=== PATIENT | male | born 1955 | race Caucasian/White ===

== ENCOUNTER 2020-06-19 08:48 | Outpatient (REF) | payer BC, SELFPAY ==
[2020-06-19 11:21] LABS: MANUAL DIFF FLAG NO
[2020-06-19 11:24] LABS: Basophils Percent Auto 0.6 % (0-2); Eosinophils Absolute Auto 0.1 X10*3/uL (0.0-0.4); Eosinophils Percent Auto 2.2 % (0-4); Hemoglobin 15.5 g/dl (14.0-18.0); Imm Gran Abs Auto 0.02 X10*3/uL (0.00-0.03); Imm Gran Pct Auto 0.3 % (0.0-0.4); Lymphocytes Absolute Auto 1.2 X10*3/uL (1.2-4.9); Lymphocytes Percent Auto 19.3 % (20-40); Mean Corpuscular Hemoglobin 30.3 pg (27.0-33.0); Mean Corpuscular Volume 91.8 fL (80-98); Monocytes Absolute Auto 0.6 X10*3/uL (0.1-1.2); Monocytes Percent Auto 9.4 % (2-11); Neutrophils Absolute Auto 4.3 X10*3/uL (2.0-8.3); Neutrophils Percent Auto 68.2 % (45-73); Platelet Count 250 X10*3/uL (160-400); Red Blood Count 5.12 X10*6/uL (4.60-5.80); Red Cell Distribution Width 13.3 % (11.0-16.0); White Blood Count 6.3 X10*3/uL (4.8-10.8)
[2020-06-19 12:04] LABS: Alanine Aminotransferase 28 U/L (0-40); Albumin Level 3.7 g/dL (3.5-5.0); Alkaline Phosphatase 43 U/L (39-117); Anion Gap 11 (12-20); Aspartate Amino Transferase 26 U/L (5-37); Bilirubin Total 0.5 mg/dL (0.0-1.0); Blood Urea Nitrogen 21 mg/dL (9-16); Calcium 8.5 mg/dL (8.4-10.2); Carbon Dioxide 28 mmol/L (22-29); Chloride 105 mmol/L (96-108); Cholesterol 149 mg/dL; Estimated Glomerular Filt Rate > 60; Glucose Fasting 102 mg/dL (60-99); HDL Cholesterol 46 mg/dL; LDL Cholesterol Calculated 89 mg/dl; Potassium 4.2 mmol/l (3.3-5.1); Sodium 140 mmol/L (135-145); Total Protein 5.5 g/dL (6.5-8.0); Triglycerides 74 mg/dL
[2020-06-19 12:08] LABS: Thyroid Stimulating Hormone 2.78 uIU/mL (0.32-4.0); Vitamin D 25-OH Total 55.4 ng/mL (>30)
[2020-06-19 14:16] LABS: Glucose Urine UA NEG (NEG); Leukocyte Esterase Urine NEG (NEG); Nitrite Urine NEG (NEG); Specific Gravity - Urine 1.025 (1.005-1.025); Urine Blood NEG (NEG); Urine Ketones NEG (NEG); Urine Protein TRACE MG/DL (NEG-TRACE)
[2020-06-19 14:20] LABS: PSA,Total (Free>4and<10) 8.05 ng/mL (0.00-4.00)
[2020-06-19 14:26] LABS: Appearance Urine CLEAR; Color Urine YELLOW
[2020-06-19 14:32] LABS: RBC Urine 0 /HPF (0); WBC Urine 0-2 /HPF (0-4)
[2020-06-20 12:26] LABS: Free Prostate Spec Ag 1.3 ng/mL; Percent Free Prostate Spec Ag 22 % (calc) (>25); Prostate Specific Ag Total 5.9 ng/mL (< OR = 4.0)
== END 2020-06-19 08:49 | disposition home or self-care (01) ==
LOC: HO.HMGCLDS 08:48
PROVIDERS: PCP Internal Medicine; Visit Provider Internal Medicine
DX: Z00.00 Encounter for general adult medical examination without abnormal findings (principal); E78.00 Pure hypercholesterolemia, unspecified; R97.20 Elevated prostate specific antigen [PSA]; E66.09 Other obesity due to excess calories; Z12.5 Encounter for screening for malignant neoplasm of prostate
CPT/HCPCS: 36415; 80053; 80061; 81001; 82306; 84153; 84154; 84443; 85025

== ENCOUNTER → 2020-08-12 11:16 | Outpatient (BNVA) | payer BC, SELFPAY | PROVIDERS: PCP Internal Medicine; Visit Provider Urology ==

== ENCOUNTER → 2020-11-26 11:31 | Outpatient (BNVA) | payer BC, SELFPAY | PROVIDERS: PCP Internal Medicine; Visit Provider Internal Medicine Cardiovascular Disease | DX: E78.5 Hyperlipidemia, unspecified (principal) | CPT/HCPCS: 93005 ==

== ENCOUNTER 2020-12-06 10:15 | Outpatient (REF) | payer BC, SELFPAY ==
[2020-12-06 12:01] LABS: PSA,Total (Free>4and<10) 2.86 ng/mL (0.00-4.00)
== END 2020-12-06 10:16 | disposition home or self-care (01) ==
LOC: HO.LAB 10:15
PROVIDERS: PCP Internal Medicine; Visit Provider Urology
DX: Z12.5 Encounter for screening for malignant neoplasm of prostate (principal); N13.8 Other obstructive and reflux uropathy; N40.1 Benign prostatic hyperplasia with lower urinary tract symptoms; R39.12 Poor urinary stream
CPT/HCPCS: 36415; 84153

== ENCOUNTER → 2021-01-20 11:18 | Outpatient (BNVA) | payer BC, SELFPAY | PROVIDERS: PCP Internal Medicine; Visit Provider Urology ==

== ENCOUNTER 2021-07-02 09:11 | Outpatient (REF) | payer BC, SELFPAY ==
[2021-07-02 11:18] LABS: MANUAL DIFF FLAG NO
[2021-07-02 11:37] LABS: Basophils Percent Auto 0.4 % (0-2); Eosinophils Absolute Auto 0.2 X10*3/uL (0.0-0.4); Eosinophils Percent Auto 2.8 % (0-4); Hematocrit 44.9 % (42.0-52.0); Hemoglobin 14.9 g/dl (14.0-18.0); Imm Gran Abs Auto 0.01 X10*3/uL (0.00-0.03); Imm Gran Pct Auto 0.2 % (0.0-0.4); Lymphocytes Absolute Auto 1.1 X10*3/uL (1.2-4.9); Mean Corpuscular HGB Conc 33.2 g/dl (31.0-36.0); Mean Corpuscular Hemoglobin 30.2 pg (27.0-33.0); Mean Corpuscular Volume 90.9 fL (80.0-98.0); Mean Platelet Volume 10.1 fL (9.4-12.4); Monocytes Absolute Auto 0.6 X10*3/uL (0.1-1.2); Monocytes Percent Auto 10.7 % (2-11); Neutrophils Absolute Auto 3.5 x10*3/uL (2.0-8.3); Neutrophils Percent Auto 64.9 % (45-73); Platelet Count 230 X10*3/uL (160-400); Red Blood Count 4.94 X10*6/uL (4.60-5.80); Red Cell Distribution Width 13.6 % (11.0-16.0); White Blood Count 5.4 X10*3/uL (4.8-10.8)
[2021-07-02 12:02] LABS: Alanine Aminotransferase 24 U/L (0-40); Albumin Level 3.5 g/dL (3.5-5.0); Alkaline Phosphatase 46 U/L (39-117); Anion Gap 9 (12-20); Aspartate Amino Transferase 26 U/L (5-37); Bilirubin Total 0.6 mg/dL (0.0-1.0); Blood Urea Nitrogen 26 mg/dL (9-16); Calcium 8.5 mg/dL (8.4-10.2); Carbon Dioxide 27 mmol/L (22-29); Chloride 109 mmol/L (96-108); Cholesterol 139 mg/dL; Estimated Glomerular Filt Rate > 60; Glucose Fasting 106 mg/dL (60-99); HDL Cholesterol 45 mg/dL; LDL Cholesterol Calculated 81 mg/dl; Potassium 4.3 mmol/L (3.3-5.1); Sodium 141 mmol/L (135-145); Total Protein 5.4 g/dL (6.5-8.0); Triglycerides 66 mg/dL
[2021-07-02 12:19] LABS: Thyroid Stimulating Hormone 2.62 uIU/mL (0.32-4.0); Vitamin D 25-OH Total 51.7 ng/mL (>30)
== END 2021-07-02 09:12 | disposition home or self-care (01) ==
LOC: HO.HMGCLDS 09:11
PROVIDERS: PCP Internal Medicine; Visit Provider Internal Medicine
DX: Z00.00 Encounter for general adult medical examination without abnormal findings (principal); E78.00 Pure hypercholesterolemia, unspecified; E66.09 Other obesity due to excess calories
CPT/HCPCS: 36415; 80053; 80061; 82306; 84443; 85025

== ENCOUNTER 2021-07-13 13:16 | Outpatient (REF) | payer BC, SELFPAY ==
[2021-07-13 17:32] LABS: PSA,Total (Free>4and<10) 4.39 ng/mL (0.00-4.00)
[2021-07-14 18:12] LABS: Free Prostate Spec Ag 0.7 ng/mL; Percent Free Prostate Spec Ag 21 % (calc) (>25); Prostate Specific Ag Total 3.3 ng/mL (< OR = 4.0)
== END 2021-07-13 13:17 | disposition home or self-care (01) ==
LOC: HO.HMGCLDS 13:16
PROVIDERS: Visit Provider Urology
DX: Z12.5 Encounter for screening for malignant neoplasm of prostate (principal); N40.1 Benign prostatic hyperplasia with lower urinary tract symptoms; N13.8 Other obstructive and reflux uropathy; R39.12 Poor urinary stream
CPT/HCPCS: 36415; 84153; 84154

== ENCOUNTER → 2021-07-23 14:39 | Outpatient (BNVA) | payer BC, SELFPAY | PROVIDERS: PCP Internal Medicine; Visit Provider Urology ==

== ENCOUNTER 2021-11-21 07:57 | Outpatient (REF) | payer MEDICARE, SELFPAY ==
[2021-11-21 09:19] LABS: PSA,Total (Free>4and<10) 3.79 ng/mL (0.00-4.00)
== END 2021-11-21 07:58 | disposition home or self-care (01) ==
LOC: HO.LAB 07:57
PROVIDERS: PCP Internal Medicine; Visit Provider Urology
DX: R97.20 Elevated prostate specific antigen [PSA] (principal); Z12.5 Encounter for screening for malignant neoplasm of prostate
CPT/HCPCS: 36415; 84153

== ENCOUNTER → 2021-12-03 11:33 | Outpatient (BNVA) | payer MEDICARE, SELFPAY | PROVIDERS: Visit Provider Urology | DX: R97.20 Elevated prostate specific antigen [PSA] (principal) | CPT/HCPCS: 51798; 99212 ==

== ENCOUNTER → 2021-12-24 13:26 | Outpatient (BNVA) | payer BC, SELFPAY | PROVIDERS: PCP Internal Medicine; Referring Provider Internal Medicine; Visit Provider Internal Medicine Cardiovascular Disease | DX: M25.471 Effusion, right ankle (principal); M25.472 Effusion, left ankle; E78.5 Hyperlipidemia, unspecified | CPT/HCPCS: 93005 ==

== ENCOUNTER 2022-05-26 08:32 | Outpatient (REF) | payer MEDICARE, SELFPAY ==
[2022-05-26 15:46] LABS: PSA,Total (Free>4and<10) 4.68 ng/mL (0.00-4.00)
[2022-05-28 10:19] LABS: Free Prostate Spec Ag 0.9 ng/mL; Percent Free Prostate Spec Ag 19 % (calc) (>25); Prostate Specific Ag Total 4.7 ng/mL (< OR = 4.0)
== END 2022-05-26 08:33 | disposition home or self-care (01) ==
LOC: HO.HMGCLDS 08:32
PROVIDERS: PCP Internal Medicine; Visit Provider Urology
DX: Z12.5 Encounter for screening for malignant neoplasm of prostate (principal); N40.1 Benign prostatic hyperplasia with lower urinary tract symptoms; N13.8 Other obstructive and reflux uropathy; R97.20 Elevated prostate specific antigen [PSA]
CPT/HCPCS: 36415; 84153; 84154

== ENCOUNTER 2022-06-02 11:51 | Day surgery (SDC) | payer MEDICARE, SELFPAY ==
--- NOTE | 2022-06-01 13:30 | HO.ANESPROP2 ---
Documented by User: Donna Story NP 06/01/22 13:30 HPI - Anesthesia Eval Consult details Narrative: 66yo M for Colonoscopy PMFSH Active Problems Active Problems: All Active Problems (Updated 12/24/21 @ 13:54 by Nam Mullins MD) Ankle edema, bilateral (Acute) Hyperlipidemia (Acute) BPH w urinary obs/LUTS (Acute) Weak urinary stream (Acute) Elevated PSA (Acute) Past Medical History Medical History Hyperlipidemia Family History Family History Father CAD (coronary artery disease) Brother CAD (coronary artery disease) Paternal Grandfather Prostate cancer Mother CAD (coronary artery disease) Surgical History Surgical History H/O partial thyroidectomy History of hernia surgery S/P LASIK surgery of both eyes Social History Social History Alcohol intake: current Alcohol intake frequency: holidays/special occasions only Alcohol type: wine Patient Tobacco Use Status: Never used Tobacco Are you DNR?: No Advance Directives: No Advance Directives Information Provided: Yes Nutrition Risks: No Nutritional Risk Meds Allergies Allergy/AdvReac Type Severity Reaction Status Date / Time No Known Allergies Allergy Verified 12/24/21 13:29 Home Medications Medication Instructions Recorded Confirmed Last Taken Type turmeric root extract 500 mg 500 mg PO DAILY 08/12/20 12/24/21 Unknown History capsule coenzyme Q10 300 mg capsule (Co 300 mg PO DAILY 11/26/20 12/24/21 Unknown History Q-10) magnesium 250 mg tablet 250 mg PO DAILY 11/26/20 12/24/21 Unknown History multivitamin 1 tab PO DAILY 11/26/20 12/24/21 Unknown History metronidazole 1 % topical gel 1 appl topical DAILY 01/20/21 12/24/21 Unknown History ascorbic acid (vitamin C) 500 mg 1,000 mg PO 12/24/21 12/24/21 Unknown History capsule fexofenadine 180 mg tablet mg 06/01/22 06/01/22 Unknown History Exam Exam Date and Time: June 01, 2022 1330 Assessment and Plan Assessment Anesthesia Assessment: Chart Reviewed Documented by User: Jodi Felton MD 06/02/22 12:41 PMFSH Past Medical History Medical History Hyperlipidemia Family History Family History Father CAD (coronary artery disease) Brother CAD (coronary artery disease) Paternal Grandfather Prostate cancer Mother CAD (coronary artery disease) Family history of problems with anesthesia: No Surgical History Surgical History H/O partial thyroidectomy History of hernia surgery S/P LASIK surgery of both eyes History of Problems with Anesthesia: No Social History Social History Alcohol intake: current Alcohol intake frequency: holidays/special occasions only Alcohol type: wine Patient Tobacco Use Status: Never used Tobacco Are you DNR?: No Advance Directives: No Advance Directives Information Provided: Yes Nutrition Risks: No Nutritional Risk Meds Allergies Allergy/AdvReac Type Severity Reaction Status Date / Time No Known Allergies Allergy Verified 12/24/21 13:29 Home Medications Medication Instructions Recorded Confirmed Last Taken Type turmeric root extract 500 mg 500 mg PO DAILY 08/12/20 12/24/21 Unknown History capsule coenzyme Q10 300 mg capsule (Co 300 mg PO DAILY 11/26/20 12/24/21 Unknown History Q-10) magnesium 250 mg tablet 250 mg PO DAILY 11/26/20 12/24/21 Unknown History multivitamin 1 tab PO DAILY 11/26/20 12/24/21 Unknown History metronidazole 1 % topical gel 1 appl topical DAILY 01/20/21 12/24/21 Unknown History ascorbic acid (vitamin C) 500 mg 1,000 mg PO 12/24/21 12/24/21 Unknown History capsule fexofenadine 180 mg tablet mg 06/01/22 06/01/22 Unknown History Exam Height,Weight and Vital Signs: Height 5 ft 11 in Weight 107.955 kg Vital Signs Temp Pulse Resp BP Pulse Ox O2 Del Method 06/02/22 12:03 96.8 F 58 18 151/96 H 98 Room Air Airway Mallampati Class: II TM Dist: >3cm Neck ROM: Full Loose/Missing/Broken Teeth: No (Denies broken, loose, missing teeth) Heart: RRR Lungs: CTAB Assessment and Plan Assessment Anesthesia Assessment: Anesthesia Plan Discussed Final Anesthetic Review Family History of Problems with Anesthesia: No History of Problems with Anesthesia: No ASA Class: II Final Preanesthetic Review: No Changes in Pt Med Stat, Meds/Allgs Chart Reviewed, Consent Obtained/Reviewed and Anes Risks/Benef Reviewed Patient Risk: Low Procedure Risk: Low Assessment/Block/Sedation in SS: Assess/Block/Sedation-SS Anesthetic Plan Anesthetic Plan: MAC: Disposition: Standard PACU
[2022-06-02 09:51] VITALS: BMI 33.2
[2022-06-02 12:03] VITALS: BP 151/96; PULSE 58; RESP 18; TEMP 36; O2SAT 98
[2022-06-02] MEDS: Lactated Ringers 1,000 ML 100 ML IVCONT (12:25)
--- NOTE | 2022-06-02 12:53 | MHC.SHP ---
Pre-Procedural Eval Section A Date of Service: 06/02/22 The patient is an INPATIENT: No Changes since office visit: No Cold of Flu in the past 2 weeks, No New Medical Problems, No Changes in Medication and No Patient answered all questions The History & Physical has been completed within 30 days and I have reviewed it.: Yes Section B Chief Complaint: screening Allergies: Allergies Allergy/AdvReac Type Severity Reaction Status Date / Time No Known Allergies Allergy Verified 12/24/21 13:29 Plan I have reviewed the history and physical and performed a pertinent physical examination on my patient. No changes have occurred unless specified. Time Spent With Patient Time: Total time managing care of this patient today ____ minutes.
--- NOTE | 2022-06-02 13:26 | PM.OP ---
Brief Operative Note Date of Service: 06/02/22 Pre-op diagnosis: screening Post-op diagnosis: same Procedure: colonoscopy Surgeon: Marcos Kirkland Anesthesia: MAC Was an Helpdesk Manager used for this Procedure?: No Estimated blood loss (mL): 2 Pathology: other Condition: stable Disposition: PACU
[2022-06-02 13:30] VITALS: BP 105/69; PULSE 76; RESP 16; TEMP 36.4; O2SAT 95
[2022-06-02 13:45] VITALS: BP 120/70; PULSE 66; RESP 15; TEMP 36.4; O2SAT 95
--- NOTE | 2022-06-02 23:16 | OP_ITS ---
SURGEON: Marcos Kirkland MD INDICATIONS: Colon cancer screening and prior history of tubular adenomas. PREOPERATIVE DIAGNOSIS: POSTOPERATIVE DIAGNOSIS: PROCEDURE PERFORMED: Colonoscopy to the terminal ileum with snare polypectomy and biopsy. ESTIMATED BLOOD LOSS: COMPLICATIONS: ANESTHESIA: ASSISTANTS: SPECIMENS: MEDICATIONS: Monitored anesthesia care. DESCRIPTION OF PROCEDURE: The procedure was performed on 06/02/2022. The history and physical were performed, the risks and benefits of the procedure were explained to the patient. Informed consent was obtained. The patient was placed in the left lateral decubitus position. A digital rectal exam was performed and was found to be normal. The Olympus pediatric video colonoscope was introduced into the rectum and advanced to the cecum without difficulty. The cecum was identified by transillumination, palpation, and identification of ileocecal valve, examination was performed. The scope was removed. He tolerated the procedure well, returned to recovery in stable condition. FINDINGS: The terminal ileum was normal. The visualized colonic mucosa was normal. There was some liquid stool coating the mucosa limiting the sensitivity examination for detection of small polyps, this was washed and suctioned. In the cecum was a 6 mm polyp, which was removed with a snare. A biopsy was obtained of the base of the polyp, at 45 cm was an 8 mm polyp, which was removed with a snare and recovered via suction. No other polyps were identified. Retroflexed examination showed moderate-sized internal hemorrhoids. There was moderate sigmoid diverticulosis. IMPRESSION: Colon polyps. RECOMMENDATIONS: Follow up the biopsy results. MD MARIA ANTONIA Man/BRE / [id number]
== END 2022-06-02 15:15 | disposition home or self-care (01) ==
PROVIDERS: PCP Internal Medicine; Visit Provider Internal Medicine Gastroenterology
PROC: 0DJD8ZZ Inspection of Lower Intestinal Tract, Via Natural or Artificial Opening Endoscopic (ICD-10-PCS; CPT 45378; principal; 2022-06-02 13:00)
DX: Z12.11 Encounter for screening for malignant neoplasm of colon (principal); Z86.010 Personal history of colon polyps; D12.0 Benign neoplasm of cecum; D12.5 Benign neoplasm of sigmoid colon; K57.30 Diverticulosis of large intestine without perforation or abscess without bleeding; K64.8 Other hemorrhoids; N40.0 Benign prostatic hyperplasia without lower urinary tract symptoms; E78.00 Pure hypercholesterolemia, unspecified; E04.1 Nontoxic single thyroid nodule; J30.89 Other allergic rhinitis; Z79.899 Other long term (current) drug therapy
CPT/HCPCS: 45385; 45380; 88305

== ENCOUNTER → 2022-06-04 08:52 | Outpatient (BNVA) | payer MEDICARE, SELFPAY | PROVIDERS: PCP Internal Medicine; Visit Provider Urology | DX: N40.1 Benign prostatic hyperplasia with lower urinary tract symptoms (principal); N13.8 Other obstructive and reflux uropathy; R97.20 Elevated prostate specific antigen [PSA]; R39.12 Poor urinary stream; E78.5 Hyperlipidemia, unspecified; Z79.899 Other long term (current) drug therapy | CPT/HCPCS: Q3014 ==

== ENCOUNTER 2022-09-14 08:16 | Outpatient (REF) | payer MEDICARE, SELFPAY ==
[2022-09-14 12:35] LABS: PSA,Total (Free>4and<10) 4.72 ng/mL (0.00-4.00)
[2022-09-16 10:18] LABS: Free Prostate Spec Ag 0.8 ng/mL; Percent Free Prostate Spec Ag 18 % (calc) (>25); Prostate Specific Ag Total 4.4 ng/mL (< OR = 4.0)
== END 2022-09-14 08:17 | disposition home or self-care (01) ==
LOC: HO.HMGCLDS 08:16
PROVIDERS: PCP Internal Medicine; Visit Provider Urology
DX: Z12.5 Encounter for screening for malignant neoplasm of prostate (principal); N40.1 Benign prostatic hyperplasia with lower urinary tract symptoms; N13.8 Other obstructive and reflux uropathy
CPT/HCPCS: 36415; 84153; 84154

== ENCOUNTER → 2022-09-30 08:29 | Outpatient (BNVA) | payer MEDICARE, SELFPAY | PROVIDERS: PCP Internal Medicine; Visit Provider Urology | DX: N40.1 Benign prostatic hyperplasia with lower urinary tract symptoms (principal); N13.8 Other obstructive and reflux uropathy; R97.20 Elevated prostate specific antigen [PSA] | CPT/HCPCS: 51798; 99212 ==

== ENCOUNTER 2023-01-03 06:40 | Outpatient (REF) | payer MEDICARE, SELFPAY ==
[2023-01-03 11:32] LABS: MANUAL DIFF FLAG NO
[2023-01-03 11:43] LABS: Basophils Percent Auto 0.5 % (0-2); Eosinophils Absolute Auto 0.2 X10*3/uL (0.0-0.4); Eosinophils Percent Auto 2.8 % (0-4); Hematocrit 44.3 % (42.0-52.0); Hemoglobin 14.7 g/dl (14.0-18.0); Imm Gran Abs Auto 0.02 X10*3/uL (0.00-0.03); Imm Gran Pct Auto 0.4 % (0.0-0.4); Lymphocytes Absolute Auto 1.1 X10*3/uL (1.2-4.9); Lymphocytes Percent Auto 19.2 % (20-40); Mean Corpuscular HGB Conc 33.2 g/dl (31.0-36.0); Mean Corpuscular Hemoglobin 29.8 pg (27.0-33.0); Mean Corpuscular Volume 89.9 fL (80.0-98.0); Mean Platelet Volume 10.1 fL (9.4-12.4); Monocytes Absolute Auto 0.5 X10*3/uL (0.1-1.2); Monocytes Percent Auto 8.7 % (2-11); Neutrophils Absolute Auto 3.9 x10*3/uL (2.0-8.3); Neutrophils Percent Auto 68.4 % (45-73); Platelet Count 211 X10*3/uL (160-400); Red Blood Count 4.93 X10*6/uL (4.60-5.80); Red Cell Distribution Width 13.9 % (11.0-16.0); White Blood Count 5.6 X10*3/uL (4.8-10.8)
[2023-01-03 12:03] LABS: Alanine Aminotransferase 21 U/L (0-40); Albumin Level 3.4 g/dL (3.5-5.0); Alkaline Phosphatase 45 U/L (39-117); Anion Gap 9 (12-20); Aspartate Amino Transferase 25 U/L (5-37); Bilirubin Total 0.5 mg/dL (0.0-1.0); Blood Urea Nitrogen 25 mg/dL (9-16); Calcium 8.4 mg/dL (8.4-10.2); Carbon Dioxide 26 mmol/L (22-29); Chloride 110 mmol/L (96-108); Cholesterol 130 mg/dL; Estimated Glomerular Filt Rate > 60; Glucose Fasting 100 mg/dL (60-99); HDL Cholesterol 44 mg/dL; LDL Cholesterol Calculated 75 mg/dl; Potassium 3.9 mmol/L (3.3-5.1); Sodium 141 mmol/L (135-145); Total Protein 5.4 g/dL (6.5-8.0); Triglycerides 56 mg/dL
[2023-01-03 12:11] LABS: Thyroid Stimulating Hormone 3.56 uIU/mL (0.32-4.0)
== END 2023-01-03 06:41 | disposition home or self-care (01) ==
LOC: HO.HMGCLDS 06:40
PROVIDERS: PCP Internal Medicine; Visit Provider Internal Medicine
DX: Z00.00 Encounter for general adult medical examination without abnormal findings (principal); E78.00 Pure hypercholesterolemia, unspecified; R97.20 Elevated prostate specific antigen [PSA]; E66.09 Other obesity due to excess calories
CPT/HCPCS: 36415; 80053; 80061; 84443; 85025

== ENCOUNTER 2023-01-06 08:43 | Outpatient (AMB) | payer BC, SELFPAY ==
--- NOTE | 2023-01-06 08:46 | A.OFFVIS_ITS ---
Intake Vital Signs 01/06/23 08:47 Height 5 ft 11 in Weight 235 lb 7.259 oz BMI 32.8 BP 108/78 Blood Pressure Location Lt brachial Position Sitting Pulse 54 Pulse Source Monitor Intake Visit Reasons: 1 year follow up Intake Note: 1 year follow up with EKG. 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 He has family history of coronary artery disease and brother and father both had coronary disease and CABG in their 40s. He has been doing well. Physically active and exercises 3 times a week with a senior technical trainer. No chest pain or shortness of breath. Last LDL level is 81, triglycerides 66 and HDL 45. Doing well as before and physically active. 01/06/23: He is here for follow-up. He is taking atorvastatin 20 mg daily. Last LDL cholesterol was 75 on 01/03/2023. HDL 44, total cholesterol 130, triglycerides 56. TSH 3.56. He continues to be active and has no exertional symptoms. No chest discomfort shortness of breath. Taking medications regularly without any issues. [facility] Medical History Hyperlipidemia Surgical History H/O partial thyroidectomy History of hernia surgery S/P LASIK surgery of both eyes Family History Father CAD (coronary artery disease) Brother CAD (coronary artery disease) Paternal Grandfather Prostate cancer Mother CAD (coronary artery disease) Social History Alcohol intake: current Alcohol intake frequency: holidays/special occasions only Alcohol type: wine Patient Tobacco Use Status: Never used Tobacco Review of Systems Const Denies weakness ENT Denies dizziness Card Denies chest pain, Denies chest pain with activity, Denies syncope, Denies rapid heart rate, Denies pedal edema, Denies edema, Denies leg edema, Denies lightheadedness, Denies palpitations, Denies dyspnea, Denies dyspnea on exertion and Denies orthopnea Resp Denies cough, Denies dyspnea and Denies dyspnea on exertion GI Denies hematochezia and Denies change in stool character Musc Denies abnormal gait, Denies muscle cramps, Denies muscle weakness, Denies numbness, Denies radiating pain into limb and Denies tingling Neuro Denies abnormal gait, Denies dizziness, Denies syncope, Denies numbness, Denies tingling and Denies weakness Endo Denies palpitations Physical Exam Vital Signs: Last Vital Signs Pulse 54 01/06/23 08:47 BP 108/78 01/06/23 08:47 BMI result Body Mass Index 32.8 GENERAL APPEARANCE: in no acute distress, pleasant. NECK: no carotid bruit, no jugular venous distention. SKIN: no suspicious lesions, warm and dry. HEART: no murmurs, regular rate and rhythm. LUNGS: clear to auscultation bilaterally. ABDOMEN: soft, nontender. EXTREMITIES: 1+ edema at ankles. PERIPHERAL PULSES: equal. NEUROLOGIC: No gross deficits, AAO X 3 Office Procedures EKG Details: Sinus bradycardia 54 beats per minute, otherwise normal EKG, QTC 402 milliseconds. [id number], Complete Assessment & Plan Assessment & Plan (1) Hyperlipidemia: Code(s): E78.5 - Hyperlipidemia, unspecified Plan Pleasant 67 year gentleman here for follow-up. He has background history of hyperlipidemia. His cholesterol numbers are great right now with atorvastatin 20 mg once a day. He continues to be active and exercise regularly and is playing squash 57. Overall as before, he has been stable. Follow-up with us in 1 year. He should have once a year fasting lipid panel. Thank you for allowing me to participate in the care of your patient. Please feel free to contact me if you have any questions. Coding Level of Care Code Est Pt Level 3 (71118) Diagnoses Hyperlipidemia E78.5 CPT Codes EKG - CPT: [id number]-[id number], Complete ([id number])
[2023-01-06 08:47] VITALS: BP 108/78; PULSE 54; BMI 32.8
== END 2023-01-06 08:59 | disposition home or self-care (01) ==
PROVIDERS: Visit Provider Internal Medicine Cardiovascular Disease
DX: E78.5 Hyperlipidemia, unspecified (principal)
CPT/HCPCS: 93010; 99213

== ENCOUNTER → 2023-01-06 08:43 | Outpatient (BNVA) | payer BC, SELFPAY | PROVIDERS: Visit Provider Internal Medicine Cardiovascular Disease | DX: E78.5 Hyperlipidemia, unspecified (principal) | CPT/HCPCS: 93005 ==

== ENCOUNTER 2023-03-22 07:38 | Outpatient (REF) | payer BC, SELFPAY ==
[2023-03-24 10:29] LABS: Free Prostate Spec Ag 0.8 ng/mL; Percent Free Prostate Spec Ag 17 % (calc) (>25); Prostate Specific Ag Total 4.7 ng/mL (< OR = 4.0)
== END 2023-03-22 07:39 | disposition home or self-care (01) ==
LOC: HO.HMGCLDS 07:38
PROVIDERS: PCP Internal Medicine; Visit Provider Urology
DX: R97.20 Elevated prostate specific antigen [PSA] (principal); Z12.5 Encounter for screening for malignant neoplasm of prostate
CPT/HCPCS: 36415; 84153; 84154

== ENCOUNTER 2023-03-31 08:19 | Outpatient (AMB) | payer BC, SELFPAY ==
--- NOTE | 2023-03-31 11:26 | MHC.OFFVIS ---
Intake Intake Visit Reasons: 6m/PSA(set) Intake Note: Patient is Present for Telephone Follow Up PSA Urology Med: Finasteride, Antibiotic Allergy: None Blood Thinner: None Pharamcy:[facility] Allergies No Known Allergies Allergy (Verified 01/06/23 08:48) HPI HPI Comments History of Present Illness Details Morgan is a pleasant male. He is a patient of Dr. Brown. 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 [employer] Lower urinary tract symptoms and elevated PSA Significant drop in PSA on finasteride Decrease in nocturia to 1 times Stream stable Current therapy finasteride Family history of BPH PSA since June 2019 has been variable between 4 and 8 - 07/03 8.1 22%, 12/01 2.9, 07/04 4.4 21%, 12/02 3.8, 06/03 4.7, 10/03 4.4 18%, 04/04 4.7 17% Six month follow-up [facility] Medical History Hyperlipidemia Surgical History S/P LASIK surgery of both eyes H/O partial thyroidectomy History of hernia surgery Family History Father CAD (coronary artery disease) Brother CAD (coronary artery disease) Paternal Grandfather Prostate cancer Mother CAD (coronary artery disease) Social History Alcohol intake: current Alcohol intake frequency: holidays/special occasions only Alcohol type: wine Patient Tobacco Use Status: Never used Tobacco Review of Systems Const All systems reviewed & are unremarkable except as noted in HPI and below Reports no additional complaints Resp Reports no additional complaints GI Reports no additional complaints Reports as per HPI Musc Reports no additional complaints Physical Exam Telemedicine evaluation Appropriate responses Regular breathing rate and rhythm HEENT Head: Yes normal to inspection Ears: hearing grossly normal bilaterally Eyes General: appearance normal, both eyes and all related structures Neck Neck: Yes normal visual inspection Chest Chest palpation & inspection: normal inspection of the chest Resp Effort & Inspection: normal respiratory effort and able to speak in complete sentences Assessment & Plan Assessment & Plan (1) Elevated PSA: Code(s): R97.20 - Elevated prostate specific antigen [PSA] Plan Six month follow-up PSA Orders: Orders PSA,Total (Free>4and<10) 6 Months R97.20 - Elevated prostate specific antigen [PSA] Medications: Refilled finasteride 5 mg PO DAILY 90 days 90 tabs 1RF N40.1 - Benign prostatic hyperplasia with lower urinary tract symptoms, R33.9 - Retention of urine, unspecified, R39.12 - Poor urinary stream Patient Instructions: Imaging studies, laboratory and physical exam results were discussed and reviewed in detail. No major barriers to patient understanding were identified. An opportunity to ask questions regarding the treatment plan was provided. All questions were answered. The patient expressed understanding and agreement with the above treatment plan. The patient is aware they should contact our office by phone for worsening of their current condition or the appearance of new urologic symptoms. Compliance is encouraged with any medications and followup testing that is ordered. It is a privilege to participate in the urologic care of your patient. If you have any questions or concerns regarding treatment for the above conditions, or other urologic issues, please do not hesitate to contact me. The office telephone contact is [phone]. This note is constructed using voice recognition software. While every effort has been made to ensure accuracy chief privacy officer errors may have been included. Yours sincerely, Dr Eamon Romero MD, [facility] - Urology Providers of Expert, Compassionate Care for the Genitourinary System Telehealth Telehealth Location of provider rendering services: practice address Location of patient: address on file Patient Identification confirmed using: Name, : Yes Telehealth method: video Patient verbally consented to treatment: Yes Patient verbally consented to billing insurance company: Yes Patient informed of any privacy concerns related to visit: Yes Coding Level of Care Code Tele Est Pt Level 3 (78424) Diagnoses Elevated PSA R97.20
== END 2023-03-31 11:58 | disposition home or self-care (01) ==
LOC: HO.HUSH 08:19
PROVIDERS: PCP Internal Medicine; Visit Provider Urology
DX: R97.20 Elevated prostate specific antigen [PSA] (principal)
CPT/HCPCS: 99213

== ENCOUNTER → 2023-03-31 08:19 | Outpatient (BNVA) | payer BC, SELFPAY | PROVIDERS: PCP Internal Medicine; Visit Provider Urology ==

== ENCOUNTER 2023-09-19 09:36 | Outpatient (REF) | payer BC, SELFPAY ==
[2023-09-19 13:55] LABS: MANUAL DIFF FLAG NO
[2023-09-19 14:02] LABS: Basophils Percent Auto 0.5 % (0-2); Eosinophils Absolute Auto 0.1 X10*3/uL (0.0-0.4); Eosinophils Percent Auto 2.1 % (0-4); Hematocrit 44.2 % (42.0-52.0); Hemoglobin 14.9 g/dl (14.0-18.0); Imm Gran Abs Auto 0.02 X10*3/uL (0.00-0.03); Imm Gran Pct Auto 0.3 % (0.0-0.4); Lymphocytes Absolute Auto 1.1 X10*3/uL (1.2-4.9); Lymphocytes Percent Auto 19.6 % (20-40); Mean Corpuscular HGB Conc 33.7 g/dl (31.0-36.0); Mean Corpuscular Hemoglobin 30.1 pg (27.0-33.0); Mean Corpuscular Volume 89.3 fL (80.0-98.0); Mean Platelet Volume 10.3 fL (9.4-12.4); Monocytes Absolute Auto 0.6 X10*3/uL (0.1-1.2); Monocytes Percent Auto 9.8 % (2-11); Neutrophils Percent Auto 67.7 % (45-73); Platelet Count 209 X10*3/uL (160-400); Red Blood Count 4.95 X10*6/uL (4.60-5.80); White Blood Count 5.8 X10*3/uL (4.8-10.8)
[2023-09-19 14:50] LABS: PSA,Total (Free>4and<10) 3.98 ng/mL (0.00-4.00)
[2023-09-19 15:06] LABS: Alanine Aminotransferase 22 U/L (0-40); Albumin Level 3.4 g/dL (3.5-5.0); Alkaline Phosphatase 44 U/L (39-117); Anion Gap 7 (12-20); Aspartate Amino Transferase 22 U/L (5-37); Bilirubin Total 0.5 mg/dL (0.0-1.0); Blood Urea Nitrogen 22 mg/dL (9-16); Calcium 8.4 mg/dL (8.4-10.2); Carbon Dioxide 27 mmol/L (22-29); Chloride 111 mmol/L (96-108); Cholesterol 132 mg/dL (<200); Estimated Glomerular Filt Rate > 60; Glucose Fasting 104 mg/dL (60-99); HDL Cholesterol 46 mg/dL (>40); LDL Cholesterol Calculated 74 mg/dL (<100); Potassium 4.3 mmol/L (3.3-5.1); Sodium 141 mmol/L (135-145); Total Protein 5.5 g/dL (6.5-8.0); Triglycerides 60 mg/dL (<150)
[2023-09-19 15:13] LABS: Thyroid Stimulating Hormone 2.05 uIU/mL (0.32-4.0)
== END 2023-09-19 09:37 | disposition home or self-care (01) ==
LOC: HO.HMGCLDS 09:36
PROVIDERS: PCP Internal Medicine; Referring Provider Urology; Visit Provider Internal Medicine
DX: Z12.5 Encounter for screening for malignant neoplasm of prostate (principal); R97.20 Elevated prostate specific antigen [PSA]; E78.00 Pure hypercholesterolemia, unspecified; E66.09 Other obesity due to excess calories
CPT/HCPCS: 36415; 80053; 80061; 84153; 84443; 85025

== ENCOUNTER 2023-10-04 11:37 | Outpatient (AMB) | payer BC, SELFPAY ==
--- NOTE | 2023-10-04 11:44 | A.OFFVIS_ITS ---
Intake Visit Reasons: 6M PSA(set)Confirmed Intake Note: Patient is Present for Follow Up Urology Medication: Finasteride Antibiotic Allergies:None Blood Thinners:None Allergies No Known Allergies Allergy (Verified 01/06/23 08:48) Medication List - Last Reconciled 10/04/23 by Eamon Romero MD ascorbic acid (vitamin C) 1,000 mg PO atorvastatin 20 mg PO DAILY cetirizine (Zyrtec) 10 mg PO DAILY PRN coenzyme Q10 (Co Q-10) 300 mg PO DAILY finasteride 5 mg PO DAILY 90 days magnesium 250 mg PO DAILY metronidazole 1% 1 appl topical DAILY multivitamin 1 tab PO DAILY turmeric root extract 500 mg PO DAILY HPI Comments Details: Morgan is a pleasant male. He is a patient of Dr. Brown. 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 [employer] Lower urinary tract symptoms and elevated PSA Significant drop in PSA on finasteride Decrease in nocturia to 1 times Stream stable Current therapy finasteride Family history of BPH PSA since June 2019 has been variable between 4 and 8 - 07/03 8.1 22%, 12/01 2.9, 07/04 4.4 21%, 12/02 3.8, 06/03 4.7, 10/03 4.4 18%, 04/04 4.7 17%, 10/04 3.9 Six month follow-up [facility] Medical History Hyperlipidemia Surgical History S/P LASIK surgery of both eyes H/O partial thyroidectomy History of hernia surgery Family History Father CAD (coronary artery disease) Brother CAD (coronary artery disease) Paternal Grandfather Prostate cancer Mother CAD (coronary artery disease) Social History Alcohol intake: current Alcohol intake frequency: holidays/special occasions only Alcohol type: wine Patient Tobacco Use Status: Never used Tobacco Assessment & Plan Assessment & Plan (1) BPH w urinary obs/LUTS: Code(s): N40.1 - Benign prostatic hyperplasia with lower urinary tract symptoms; N13.8 - Other obstructive and reflux uropathy Category: Medical (2) Weak urinary stream: Code(s): R39.12 - Poor urinary stream Category: Medical (3) Elevated PSA: Code(s): R97.20 - Elevated prostate specific antigen [PSA] Category: Medical Plan Continue six-month follow-up PSA Orders: Orders PSA,Total (Free>4and<10) 6 Months R97.20 - Elevated prostate specific antigen [PSA] Medications: Refilled finasteride 5 mg PO DAILY 90 days 90 tabs 1RF N40.1 - Benign prostatic hyperplasia with lower urinary tract symptoms, R33.9 - Retention of urine, unspecified, R39.12 - Poor urinary stream Patient Instructions: Imaging studies, laboratory and physical exam results were discussed and reviewed in detail. No major barriers to patient understanding were identified. An opportunity to ask questions regarding the treatment plan was provided. All questions were answered. The patient expressed understanding and agreement with the above treatment plan. The patient is aware they should contact our office by phone for worsening of their current condition or the appearance of new urologic symptoms. Compliance is encouraged with any medications and followup testing that is ordered. It is a privilege to participate in the urologic care of your patient. If you have any questions or concerns regarding treatment for the above conditions, or other urologic issues, please do not hesitate to contact me. The office telephone contact is [phone]. This note is constructed using voice recognition software. While every effort has been made to ensure accuracy swift tender errors may have been included. Yours sincerely, Dr Eamon Romero MD, [facility] - Urology Providers of Expert, Compassionate Care for the Genitourinary System Coding Level of Care Code Est Pt Level 3 (72802) Diagnoses BPH w urinary obs/LUTS N40.1; N13.8 Weak urinary stream R39.12 Elevated PSA R97.20
== END 2023-10-04 12:01 | disposition home or self-care (01) ==
PROVIDERS: PCP Internal Medicine; Visit Provider Urology
DX: N40.1 Benign prostatic hyperplasia with lower urinary tract symptoms (principal); N13.8 Other obstructive and reflux uropathy; R39.12 Poor urinary stream; R97.20 Elevated prostate specific antigen [PSA]
CPT/HCPCS: 99213

== ENCOUNTER → 2023-10-04 11:37 | Outpatient (BNVA) | payer BC, SELFPAY | PROVIDERS: PCP Internal Medicine; Visit Provider Urology ==

== ENCOUNTER 2024-01-04 09:56 | Outpatient (AMB) | payer BC, SELFPAY ==
[2024-01-04 10:01] VITALS: BP 120/72; PULSE 63; BMI 33.1
--- NOTE | 2024-01-04 10:01 | MHC.OFFVIS ---
Vital Signs 01/04/24 10:01 Height 5 ft 11 in Weight 237 lb 10.533 oz BMI 33.1 BP 120/72 Blood Pressure Location Lt brachial Position Sitting Pulse 63 Pulse Source Monitor Intake Visit Reasons: 1 yr f/up Hand Embroiderer Required: No Accompanied by: Self / Same As Patient Allergies No Known Allergies Allergy (Verified 01/06/23 08:48) Medication List - Last Reconciled 01/04/24 by Nam Mullins MD ascorbic acid (vitamin C) 1,000 mg PO atorvastatin 20 mg PO DAILY cetirizine (Zyrtec) 10 mg PO DAILY PRN chromium picolinate 400 mcg PO DAILY coenzyme Q10 (Co Q-10) 300 mg PO DAILY finasteride 5 mg PO DAILY 90 days magnesium 250 mg PO DAILY multivitamin 1 tab PO DAILY omega-3 fatty acids-fish oil 360-1,200 mg (Fish Oil) 2 caps PO DAILY turmeric root extract 500 mg PO DAILY HPI Comments Details: 67-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 He has family history of coronary artery disease and brother and father both had coronary disease and CABG in their 40s. He has been doing well. Physically active and exercises 3 times a week with a customer service trainer. No chest pain or shortness of breath. Last LDL level is 81, triglycerides 66 and HDL 45. Doing well as before and physically active. 01/06/23: He is here for follow-up. He is taking atorvastatin 20 mg daily. Last LDL cholesterol was 75 on 01/03/2023. HDL 44, total cholesterol 130, triglycerides 56. TSH 3.56. He continues to be active and has no exertional symptoms. No chest discomfort shortness of breath. Taking medications regularly without any issues. 01/04/2024: Here for yearly visit. Doing well. Exercising as before and has no exertional symptoms. He recently traveled and his diet changed their and he has noticed lower extremity edema. No congestive heart failure symptoms. He is saying that overnight the edema improves but as the day progresses there is lower extremity edema involving the ankles. [facility] Medical History Hyperlipidemia Surgical History S/P LASIK surgery of both eyes H/O partial thyroidectomy History of hernia surgery Family History Father CAD (coronary artery disease) Brother CAD (coronary artery disease) Paternal Grandfather Prostate cancer Mother CAD (coronary artery disease) Social History Alcohol intake: current Alcohol intake frequency: holidays/special occasions only Alcohol type: wine Patient Tobacco Use Status: Never used Tobacco Review of Systems Const Denies chills, Denies fatigue, Denies fever(s), Denies frequent falls, Denies weakness, Denies weight gain and Denies weight loss ENT Denies dizziness Card Denies chest pain, Denies leg edema, Denies lightheadedness, Denies palpitations, Denies dyspnea and Denies dyspnea on exertion Resp Denies cough, Denies dyspnea and Denies dyspnea on exertion GI Denies hematochezia Musc Denies abnormal gait, Denies muscle weakness, Denies numbness, Denies radiating pain into limb and Denies tingling Neuro Denies abnormal gait, Denies dizziness, Denies frequent falls, Denies numbness, Denies tingling and Denies weakness Endo Denies fatigue and Denies palpitations Physical Exam Vital Signs: Last Vital Signs Pulse 63 01/04/24 10:01 BP 120/72 01/04/24 10:01 BMI result Body Mass Index 33.1 GENERAL APPEARANCE: in no acute distress, pleasant. NECK: no carotid bruit, no jugular venous distention. SKIN: no suspicious lesions, warm and dry. HEART: no murmurs, regular rate and rhythm. LUNGS: clear to auscultation bilaterally. ABDOMEN: soft, nontender. EXTREMITIES: 1+ edema at ankles. PERIPHERAL PULSES: equal. NEUROLOGIC: No gross deficits, AAO X 3 Office Procedures EKG Details: Sinus rhythm 63 beats per minute, normal axis, normal ECG, QTC 413 milliseconds. [id number], Complete Assessment & Plan Assessment & Plan (1) Ankle edema, bilateral: Code(s): M25.471 - Effusion, right ankle; M25.472 - Effusion, left ankle Category: Medical (2) Hyperlipidemia: Code(s): E78.5 - Hyperlipidemia, unspecified Category: Medical Plan Pleasant 68 year gentleman who is here for follow-up. He has background history of hyperlipidemia and family history of coronary artery disease. He is doing well with current regimen with good cholesterol control and blood pressure control. Physically active and has no exertional symptoms. Continue same medications. Lower extremity edema-this is not due to congestive heart failure. Likely cause is dietary salt intake which he is cutting back on. I have advised him to try some diuretics in case edema does not improve with conservative measures. I have explained to him that sometimes venous reflux can lead to similar edema and we can do ultrasound to clarify. He currently wishes to just do conservative measures. Follow up in 1 year. Thank you for allowing me to participate in the care of your patient. Please feel free to contact me if you have any questions. Coding Level of Care Code Est Pt Level 4 (96809) Diagnoses Ankle edema, bilateral M25.471; M25.472 Hyperlipidemia E78.5 CPT Codes EKG - CPT: [id number]-[id number], Complete ([id number])
== END 2024-01-04 10:37 | disposition home or self-care (01) ==
PROVIDERS: PCP Internal Medicine; Visit Provider Internal Medicine Cardiovascular Disease
DX: M25.471 Effusion, right ankle (principal); M25.472 Effusion, left ankle; E78.5 Hyperlipidemia, unspecified
CPT/HCPCS: 93010; 99214

== ENCOUNTER → 2024-01-04 09:56 | Outpatient (BNVA) | payer BC, SELFPAY | PROVIDERS: PCP Internal Medicine; Visit Provider Internal Medicine Cardiovascular Disease | DX: E78.5 Hyperlipidemia, unspecified (principal); M25.471 Effusion, right ankle; M25.472 Effusion, left ankle | CPT/HCPCS: 93005 ==

== ENCOUNTER 2024-03-20 08:09 | Outpatient (REF) | payer BC, SELFPAY ==
[2024-03-20 10:50] LABS: PSA,Total (Free>4and<10) 5.47 ng/mL (0.00-4.00)
[2024-03-21 11:18] LABS: Free Prostate Spec Ag 1.1 ng/mL; Percent Free Prostate Spec Ag 20 % (calc) (>25); Prostate Specific Ag Total 5.4 ng/mL (< OR = 4.0)
== END 2024-03-20 08:10 | disposition home or self-care (01) ==
LOC: HO.HMGCLDS 08:09
PROVIDERS: PCP Internal Medicine; Visit Provider Urology
DX: R97.20 Elevated prostate specific antigen [PSA] (principal); Z12.5 Encounter for screening for malignant neoplasm of prostate
CPT/HCPCS: 36415; 84153; 84154

== ENCOUNTER 2024-04-04 09:36 | Outpatient (AMB) | payer BC, SELFPAY ==
--- NOTE | 2024-04-04 09:36 | MHC.OFFVIS ---
Intake Visit Reasons: 6m/PSA(set) Intake Note: Patient is present for Telephone PSA Follow Up Urology Med: Finasteride Antibiotic Allergy: None Blood Thinner: None Recent PSA: 03/20/2024 Total PSA: 5.47 Free PSA: 1.1 %Free PSA: 20% Accompanied by: Self / Same As Patient Allergies No Known Allergies Allergy (Verified 04/04/24 09:36) HPI Comments Details: Morgan is a pleasant male. He is a patient of Dr. Brown. 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 [employer] Lower urinary tract symptoms and elevated PSA Significant drop in PSA on finasteride Decrease in nocturia to 1 times Current therapy finasteride Family history of BPH PSA since June 2019 has been variable between 4 and 8 - 07/03 8.1 22%, 12/01 2.9, 07/04 4.4 21%, 12/02 3.8, 06/03 4.7, 10/03 4.4 18%, 04/04 4.7 17%, 10/04 3.9, 04/05 5.4 F 20% PFSH Medical History Hyperlipidemia Surgical History S/P LASIK surgery of both eyes H/O partial thyroidectomy History of hernia surgery Family History Father CAD (coronary artery disease) Brother CAD (coronary artery disease) Paternal Grandfather Prostate cancer Mother CAD (coronary artery disease) Social History Alcohol intake: current Alcohol intake frequency: holidays/special occasions only Alcohol type: wine Patient Tobacco Use Status: Never used Tobacco Review of Systems Const All systems reviewed & are unremarkable except as noted in HPI and below Reports no additional complaints Resp Reports no additional complaints GI Reports no additional complaints Reports as per HPI Musc Reports no additional complaints Physical Exam Telemedicine evaluation Appropriate responses Regular breathing rate and rhythm HEENT Head: Yes normal to inspection Ears: hearing grossly normal bilaterally Eyes General: appearance normal, both eyes and all related structures Neck Neck: Yes normal visual inspection Chest Chest palpation & inspection: normal inspection of the chest Resp Effort & Inspection: normal respiratory effort and able to speak in complete sentences Telehealth Telehealth Telehealth Platform: [employer] Location of provider rendering services: practice address Location of patient: address on file Patient Identification confirmed using: Name, : Yes Telehealth method: video Patient verbally consented to treatment: Yes Patient verbally consented to billing insurance company: Yes Patient informed of any privacy concerns related to visit: Yes Minutes spent on Phone/Video with Pt.: 15 Assessment & Plan Assessment & Plan (1) BPH w urinary obs/LUTS: Code(s): N40.1 - Benign prostatic hyperplasia with lower urinary tract symptoms; N13.8 - Other obstructive and reflux uropathy Category: Medical (2) Elevated PSA: Code(s): R97.20 - Elevated prostate specific antigen [PSA] Category: Medical Plan [employer] Four month follow-up check PSA Orders: Orders PSA,Total (Free>4and<10) 4 Months R97.20 - Elevated prostate specific antigen [PSA] Patient Instructions: Imaging studies, laboratory and physical exam results were discussed and reviewed in detail. No major barriers to patient understanding were identified. An opportunity to ask questions regarding the treatment plan was provided. All questions were answered. The patient expressed understanding and agreement with the above treatment plan. The patient is aware they should contact our office by phone for worsening of their current condition or the appearance of new urologic symptoms. Compliance is encouraged with any medications and followup testing that is ordered. It is a privilege to participate in the urologic care of your patient. If you have any questions or concerns regarding treatment for the above conditions, or other urologic issues, please do not hesitate to contact me. The office telephone contact is [phone]. This note is constructed using voice recognition software. While every effort has been made to ensure accuracy business specialist errors may have been included. Yours sincerely, Dr Eamon Romero MD, [facility] - Urology Providers of Expert, Compassionate Care for the Genitourinary System Coding Level of Care Code Tele Est Pt Level 3 (65026) Diagnoses BPH w urinary obs/LUTS N40.1; N13.8 Elevated PSA R97.20
== END 2024-04-04 10:29 | disposition home or self-care (01) ==
LOC: HO.HUSH 09:36
PROVIDERS: PCP Internal Medicine; Visit Provider Urology
DX: N40.1 Benign prostatic hyperplasia with lower urinary tract symptoms (principal); N13.8 Other obstructive and reflux uropathy; R97.20 Elevated prostate specific antigen [PSA]
CPT/HCPCS: 99213

== ENCOUNTER → 2024-04-04 09:36 | Outpatient (BNVA) | payer BC, SELFPAY | PROVIDERS: PCP Internal Medicine; Visit Provider Urology ==

== ENCOUNTER 2024-07-30 08:23 | Outpatient (REF) | payer BC, SELFPAY ==
--- OUTSIDE RECORDS SUMMARY | 2024-07-30 08:28 | XMS_ITS ---
Author Organization Jeromy Brown DO, FACP Address [address], [place] [id number] Care Team Providers Care Elevator Constructor Electric Name Role Phone Jeromy Brown Primary Care Provider [phone] REASON FOR VISIT 6 month f/u Encounters Encounter Location Date Provider Diagnosis Jeromy Brown DO, FACP [address] [place] [id number] 07/17/2024 Jeromy Brown PLAN OF TREATMENT No Information
--- OUTSIDE RECORDS SUMMARY | 2024-07-30 08:29 | XMS_ITS ---
Author Organization Jeromy Brown DO, FACP Address [address], [place] [id number] Care Team Providers Care Biofuels Technology Development Manager Name Role Phone Jeromy Brown Primary Care Provider ALLERGIES No Known Allergies REASON FOR VISIT physical, annual visit, Follow up hypercholesterolemia, Elevated PSA MEDICATIONS Medication SIG (Take, Route, Frequency, Duration) Notes Start Date End Date Status Acetyl L-Carnitine 250 MG 1 capsule Oral ly Once a day Active Garlic 500 MG 1 capsule Orally Onc e a day Active Lutein-Zeaxanthin 25-5 MG 1 capsule Oral ly Once a day Active Multi For Him 1 tablet Orally Once a day Active Vitamin C 1000 MG 1 tablet Orally Once a day Active Magnesium Citrate 200 MG 1 tablet Orally Once a day Active Cetirizine HCl 10 MG 1 tablet Orally Onc e a day Active Chromium Xtra 400 MCG 1 tablet Orally On ce a day Active Finasteride 5 MG 1 tablet Orally Once a day Active Vitamin D 2000 UNIT 1 capsule Orally Onc e a day Active Fish Oil 1200 MG 2 capsules with a me al Orally Once a day Active Alpha-Lipoic Acid 300 MG 1 capsule Orall y Once a day Active Atorvastatin Calcium 20 MG 1 tablet Oral ly Once a day Active Coenzyme Q10 300 MG 1 capsule with a yany l Orally Once a day Active Cholest Off Complete 450-75 MG 2 tablets Orally Once a day Active SOCIAL HISTORY Tobacco Use: Social History Observation Description Date Details (start date - stop date) Never Smoker NA - NA Sex Assigned At : Social History Observation Description Sex Assigned At Unknown Tobacco Use/Smoking Question Answer Notes Patient is a nonsmoker Additional Findings: Tobacco Non-User Cu rrent non-smoker, currently using no form of tobacco Alcohol Screen Question Answer Notes Did you have a drink contain ing alcohol in the past year? Yes How often did you have a dri nk containing alcohol in the past year? 2 to 3 times a week (3 points) How many drinks did you have on a typical day when you were drinking in the past year? 1 or 2 drinks (0 point) How often did you have 6 or more drinks on one occasion in the past year? Never (0 point) Points 3 Interpretation Negative VITAL SIGNS BMI 33.33 kg/m2 01/17/2024 Blood pressure systolic 118 mm Hg 01/17/20 24 Blood pressure diastolic 70 mm Hg 024 Height 71 in 01/17/2024 Weight 239 lbs 01/17/2024 Encounters Encounter Location Date Provider Diagnosis Jeromy Brown DO, [facility] [address], [place] [id number] 01/17/2024 Jeromy Brown Encounter for genera l adult medical examination without abnormal findings Z00.00 ; Hypercholesterolemia E78.00 and Elevated PSA R97.20 ASSESSMENTS Encounter Date Diagnosis Assessment Notes Treatment Notes Treatment Clinical Notes 01/17/2024 Encounter for genera l adult medical examination without abnormal findings (ICD-10 - Z00.00) Diet, exercise, weight loss 01/17/2024 Hypercholesterolemia (ICD-10 - E78.00) Low salt diet 01/17/2024 Elevated PSA (ICD-10 - R97.20) Follow up with Urology PLAN OF TREATMENT Medication Medication Name Sig Start Date Stop Date Notes Acetyl L-Carnitine 250 MG 1 capsule Orally Once a day Garlic 500 MG 1 capsule Orally Once a day Lutein-Zeaxanthin 25-5 MG 1 capsule Orally Once a day Multi For Him 1 tablet Orally Once a day Vitamin C 1000 MG 1 tablet Orally Once a day Magnesium Citrate 200 MG 1 tablet Orally Once a day Cetirizine HCl 10 MG 1 tablet Orally Once a day Chromium Xtra 400 MCG 1 tablet Orally Once a day Finasteride 5 MG 1 tablet Orally Once a day Vitamin D 2000 UNIT 1 capsule Orally Once a day Fish Oil 1200 MG 2 capsules with a me al Orally Once a day Alpha-Lipoic Acid 300 MG 1 capsule Orally Once a day Atorvastatin Calcium 20 MG 1 tablet Orally Once a day Coenzyme Q10 300 MG 1 capsule with a yany l Orally Once a day Cholest Off Complete 450-75 MG 2 tablets Orally Once a day Treatment Notes Assessment Notes Encounter for general adult medical examination without abnormal findings Diet, exercise, weight loss Hypercholesterolemia Low salt diet Elevated PSA Follow up with Urolo gy Next Appt Details Follow Up: 6 Months, Reason: follow up visit Progress Notes * Examination Category Sub-Category Detail Notes General Examination GENERAL APPEARANCE: in no ac port lions distress, well developed, well nourished HEAD: normocephalic, atrau matic EYES: sclera non-icteric NECK/THYROID: neck supple, thyroid normal, no cervical lymphadenopathy, no carotid bruit HEART: no murmurs, regular rate and rhythm, S1, S2 normal LUNGS: clear to auscultatio n bilaterally ABDOMEN: normal, bowel sounds present, soft, nontender, nondistended NEUROLOGIC: nonfocal, motor stre ngth normal upper and lower extremities, sensory exam intact SKIN: warm and dry EXTREMITIES: 1+ pitting edema low er extremities PERIPHERAL PULSES: 2+ dorsalis pedis, 2 + posterior tibial MALE GENITOURINARY no hernia, no penile lesions or discharge, no testicular mass, testes descended bilaterally PSYCH: alert, oriented, cog nitive function intact History and Physical Notes * HPI (History of Present Illness) Category Sub-Category Detail Notes Depression Screening PHQ-9 Little inte rest or pleasure in doing things: Not at all Feeling down, depressed, or hopeless: No t at all Trouble falling or staying asleep, or sl eeping too much: Not at all Feeling tired or having little energy: N ot at all Poor appetite or overeating: Not at all Feeling bad about yourself o r that you are a failure, or have let yourself or your family down: Not at all Trouble concentrating on thi ngs, such as reading the newspaper or watching television: Not at all Moving or speaking so slowly that other people could have noticed; or the opposite, being so fidgety or restless that you have been moving around a lot more than usual: Not at all Thoughts that you would be b vlad off or of hurting yourself in some way: Not at all Total Score: 0 Interpretation and Intervention Depression Em cifuentes Findings: Negative Follow-Up for Depression: : Review of PH Q-9 found negative result; no follow-up needed Fall Risk Fall History Have you had two or more fal ls in the past year?: No Have you had any falls with injury in th e past year?: No Fall Risk Assessment:: No falls in the p ast year Communication Needs PCMH Communication Needs - PCMH He aring Impairment?: No Vision Impairment?: Yes wears reading gl asses Cognitive Impairment?: No SDOH Questions SDOH Questions In the past year have you been worried about losing your housing?: No In the past year have you or any family members you live with been unable to get any of the following when it was really needed? Check all that apply:: None
--- OUTSIDE RECORDS SUMMARY | 2024-07-30 08:29 | XMS_ITS ---
Author Organization Jeromy Brown DO, FACP Address [address], [place] [id number] Care Team Providers Care Residential Appraiser Name Role Phone Jeromy Brown Primary Care Provider [phone] ALLERGIES No Known Allergies REASON FOR VISIT Follow up Elevated PSA MEDICATIONS Medication SIG (Take, Route, Frequency, Duration) Notes Start Date End Date Status Multi For Him 1 tablet Orally Once a day Active Garlic 500 MG 1 capsule Orally Onc e a day Active Lutein-Zeaxanthin 25-5 MG 1 capsule Oral ly Once a day Active Acetyl L-Carnitine 250 MG 1 capsule Oral ly Once a day Active Vitamin C 1000 MG 1 tablet Orally Once a day Active Magnesium Citrate 200 MG 1 tablet Orally Once a day Active Finasteride 5 MG 1 tablet Orally Once a day Active Vitamin D 2000 UNIT 1 capsule Orally Onc e a day Active Cetirizine HCl 10 MG 1 tablet Orally Onc e a day Active Chromium Xtra 400 MCG 1 tablet Orally On ce a day Active Coenzyme Q10 300 MG 1 capsule with a yany l Orally Once a day Active Fish Oil 1200 MG 2 capsules with a me al Orally Once a day Active Alpha-Lipoic Acid 300 MG 1 capsule Orall y Once a day Active Cholest Off Complete 450-75 MG 2 tablets Orally Once a day Active Atorvastatin Calcium 20 MG 1 tablet Oral ly Once a day Active SOCIAL HISTORY Tobacco [...] Points 3 Interpretation Negative VITAL SIGNS BMI 33.47 kg/m2 07/19/2023 Blood pressure systolic 122 mm Hg 07/19/19 24 Blood pressure diastolic 64 mm Hg 024 Height 71 in 07/19/2023 Weight 240 lbs 07/19/2023 Encounters Encounter Location Date Provider Diagnosis Jeromy Brown DO, FACP [address], [place] [id number] 07/19/2023 Jeromy Brown Hypercholesterolemia E78.00 ; Elevated PSA R97.20 and Other obesity due to excess calories E66.09 ASSESSMENTS Encounter Date Diagnosis Assessment Notes Treatment Notes Treatment Clinical Notes 07/19/2023 Hypercholesterolemia (ICD-10 - E78.00) 07/19/2023 Elevated PSA (ICD-10 - R97.20) Follow up with Urology 07/19/2023 Other obesity due to excess calories (ICD-10 - E66.09) Diet, exercise, weight loss. Needs to decrease his BMI. Goal weight loss of 15 pounds. Decrease carbohydrate intake PLAN OF TREATMENT Medication Medication Name Sig Start Date Stop Date Notes Multi For Him 1 tablet Orally Once a day Garlic 500 MG 1 capsule Orally Once a day Lutein-Zeaxanthin 25-5 MG 1 capsule Orally Once a day Acetyl L-Carnitine 250 MG 1 capsule Orally Once a day Vitamin C 1000 MG 1 tablet Orally Once a day Magnesium Citrate 200 MG 1 tablet Orally Once a day Finasteride 5 MG 1 tablet Orally Once a day Vitamin D 2000 UNIT 1 capsule Orally Once a day Cetirizine HCl 10 MG 1 tablet Orally Once a day Chromium Xtra 400 MCG 1 tablet Orally Once a day Coenzyme Q10 300 MG 1 capsule with a yany l Orally Once a day Fish Oil 1200 MG 2 capsules with a me al Orally Once a day Alpha-Lipoic Acid 300 MG 1 capsule Orally Once a day Cholest Off Complete 450-75 MG 2 tablets Orally Once a day Atorvastatin Calcium 20 MG 1 tablet Orally Once a day Treatment Notes Assessment Notes Elevated PSA Follow up with Urolo gy Other obesity due to excess calories t, exercise, weight loss. Needs to decrease his BMI. Goal weight loss of 15 pounds. Decrease carbohydrate intake Next Appt Details Follow Up: 6 Months, Reason: H&P Progress Notes * Examination Category Sub-Category Detail Notes General Examination GENERAL APPEARANCE: in no ac carmenza distress, well developed, well nourished HEAD: normocephalic, atrau matic HEART: no murmurs, regular rate and rhythm, S1, S2 normal LUNGS: clear to auscultatio n bilaterally ABDOMEN: normal, bowel sounds present, soft, nontender, nondistended SKIN: warm and dry EXTREMITIES: no edema PSYCH: alert, oriented, cog nitive function intact
[2024-07-30 10:18] LABS: MANUAL DIFF FLAG NO
[2024-07-30 10:26] LABS: Basophils Percent Auto 0.7 % (0-2); Eosinophils Absolute Auto 0.2 X10*3/uL (0.0-0.4); Eosinophils Percent Auto 2.6 % (0-4); Hemoglobin 15.2 g/dl (14.0-18.0); Imm Gran Abs Auto 0.02 X10*3/uL (0.00-0.03); Imm Gran Pct Auto 0.3 % (0.0-0.4); Lymphocytes Absolute Auto 1.3 X10*3/uL (1.2-4.9); Lymphocytes Percent Auto 21.9 % (20-40); Mean Corpuscular HGB Conc 33.8 g/dl (31.0-36.0); Mean Corpuscular Hemoglobin 30.2 pg (27.0-33.0); Mean Corpuscular Volume 89.3 fL (80.0-98.0); Mean Platelet Volume 9.9 fL (9.4-12.4); Monocytes Absolute Auto 0.5 X10*3/uL (0.1-1.2); Monocytes Percent Auto 9.1 % (2-11); Neutrophils Absolute Auto 3.8 x10*3/uL (2.0-8.3); Neutrophils Percent Auto 65.4 % (45-73); Platelet Count 199 X10*3/uL (160-400); Red Blood Count 5.04 X10*6/uL (4.60-5.80); Red Cell Distribution Width 13.6 % (11.0-16.0); White Blood Count 5.9 X10*3/uL (4.8-10.8)
[2024-07-30 10:37] LABS: Estimated Average Glucose 117 mg/dL; Hemoglobin A1C 152.9206 umol/L; Hemoglobin A1c % 5.7 % (<6.0); Total Hemoglobin (HGBA1C) 3958.8237 umol/L
[2024-07-30 10:44] LABS: Alanine Aminotransferase 27 U/L (0-40); Albumin Level 3.3 g/dL (3.5-5.0); Alkaline Phosphatase 42 U/L (39-117); Anion Gap 11 (12-20); Aspartate Amino Transferase 31 U/L (5-37); Bilirubin Direct 0.1 mg/dL (0.0-0.5); Bilirubin Total 0.4 mg/dL (0.0-1.0); Blood Urea Nitrogen 24 mg/dL (9-16); Calcium 8.3 mg/dL (8.4-10.2); Carbon Dioxide 25 mmol/L (22-29); Chloride 110 mmol/L (96-108); Cholesterol 141 mg/dL (<200); Estimated Glomerular Filt Rate > 60; Glucose Fasting 100 mg/dL (60-99); HDL Cholesterol 49 mg/dL (>40); LDL Cholesterol Calculated 78 mg/dL (<100); Magnesium 1.8 mg/dL (1.6-2.6); Potassium 3.9 mmol/L (3.3-5.1); Sodium 142 mmol/L (135-145); Total Protein 5.5 g/dL (6.5-8.0); Triglycerides 74 mg/dL (<150)
[2024-07-30 10:59] LABS: PSA,Total (Free>4and<10) 6.32 ng/mL (0.00-4.00)
[2024-07-30 11:03] LABS: TSH reflex Free T4 3.47 uIU/mL (0.32-4.0); Vitamin D 25-OH Total 57.7 ng/mL (>30)
[2024-07-30 11:10] LABS: Folate 13.4 ng/mL (> or = 4.0); Vitamin B12 382 pg/mL (200-900)
[2024-07-31 12:13] LABS: Free Prostate Spec Ag 1.2 ng/mL; Percent Free Prostate Spec Ag 23 % (calc) (>25); Prostate Specific Ag Total 5.3 ng/mL (< OR = 4.0)
== END 2024-07-30 08:24 | disposition home or self-care (01) ==
LOC: HO.HMGCLDS 08:23
PROVIDERS: PCP Internal Medicine; Referring Provider Urology; Visit Provider Physician Assistant Medical
DX: Z00.00 Encounter for general adult medical examination without abnormal findings (principal); R97.20 Elevated prostate specific antigen [PSA]; Z12.5 Encounter for screening for malignant neoplasm of prostate; Z13.29 Encounter for screening for other suspected endocrine disorder; Z13.1 Encounter for screening for diabetes mellitus; Z13.220 Encounter for screening for lipoid disorders; Z13.228 Encounter for screening for other metabolic disorders
CPT/HCPCS: 36415; 80053; 80061; 80076; 82248; 82306; 82607; 82746; 83036; 83735; 84153; 84154; 84443; 85025

== ENCOUNTER 2024-08-03 11:23 | Outpatient (AMB) | payer BC, SELFPAY ==
--- NOTE | 2024-08-03 11:27 | A.OFFVIS_ITS ---
Intake Visit Reasons: 4M PSA/ExoDx(psa?) Intake Note: Pt presents to office today for 4 month follow up psa/exoDx Allergies No Known Allergies Allergy (Verified 08/03/24 11:27) HPI Comments Details: Morgan is a pleasant male. He is a patient of Dr. Brown. 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 [employer] Six-month follow-up tele May benefit from prostate MRI Lower urinary tract symptoms and elevated PSA Significant drop in PSA on finasteride Decrease in nocturia to 1 times Current therapy finasteride Family history of BPH PSA since June 2019 has been variable between 4 and 8 - 07/03 8.1 22%, 12/01 2.9, 07/04 4.4 21%, 12/02 3.8, 06/03 4.7, 10/03 4.4 18%, 04/04 4.7 17%, 10/04 3.9, 04/05 5.4 F 20% PFSH Medical History Obesity (BMI 30-39.9) Sebaceous cyst Plantar fasciitis Thyroid nodule Hyperlipidemia Surgical History History of colonoscopy (~05/2022) S/P LASIK surgery of both eyes H/O partial thyroidectomy History of hernia surgery Family History Father CAD (coronary artery disease) Brother CAD (coronary artery disease) Paternal Grandfather Prostate cancer Mother CAD (coronary artery disease) Social History Alcohol intake: current Alcohol intake frequency: holidays/special occasions only Alcohol type: wine Patient Tobacco Use Status: Never used Tobacco Review of Systems Const Denies chills and Denies fever(s) Card Reports no additional complaints and Denies syncope Resp Denies cough GI Denies abdominal pain and Denies heartburn Reports as per HPI and Denies change in libido Neuro Denies syncope Psych Denies change in libido Endo Denies change in libido Physical Exam Const General: cooperative, healthy appearing, comfortable and no acute distress Orientation/consciousness: patient oriented x3 HEENT Face and sinus: Yes normal facial exam Mouth: moist mucous membranes Neck Neck: Yes normal visual inspection, Yes full ROM and Yes trachea midline Chest Chest palpation & inspection: normal inspection of the chest Resp Effort & Inspection: normal respiratory effort, able to speak in complete sentences and no respiratory distress GI Inspection: Yes normal to inspection Back/Spine/Pelvis Cervical Spine: normal cervical lordosis Thoracic/Lumbar Spine: thoracic and lumbar spine normal to inspection Skin General skin exam: no rashes or lesions noted Neuro General: patient oriented x3, gait normal, tone normal and moves all extremities Extrem General: Yes normal to inspection and Yes capillary refill normal Assessment & Plan Assessment & Plan (1) Elevated PSA: Code(s): R97.20 - Elevated prostate specific antigen [PSA] Category: Medical (2) BPH w urinary obs/LUTS: Code(s): N40.1 - Benign prostatic hyperplasia with lower urinary tract symptoms; N13.8 - Other obstructive and reflux uropathy Category: Medical Plan Six-month follow-up PSA Orders: Orders PSA,Total (Free>4and<10) 6 Months R97.20 - Elevated prostate specific antigen [PSA] Patient Instructions: This note is constructed using voice recognition software. While every effort has been made to ensure accuracy dry house operator errors may have been included. Imaging studies, laboratory and physical exam results were discussed and reviewed in detail. No major barriers to patient understanding were identified. An opportunity to ask questions regarding the treatment plan was provided. All questions were answered. The patient expressed understanding and agreement with the above treatment plan. The patient is aware they should contact our office by phone for worsening of their current condition or the appearance of new urologic symptoms. Compliance is encouraged with any medications and followup testing that is ordered. It is a privilege to participate in the urologic care of your patient. If you h ave any questions or concerns regarding treatment for the above conditions, or other urologic issues, please do not hesitate to contact me. The office telephone contact is [phone]. Sincerely, Dr Eamon Romero MD, [facility] - Urology Compassionate Specialist Care for the Genitourinary System Coding Level of Care Code Est Pt Level 3 (93797) Diagnoses Elevated PSA R97.20 BPH w urinary obs/LUTS N40.1; N13.8
--- OUTSIDE RECORDS SUMMARY | 2024-08-03 12:29 | XMS_ITS ---
Author Organization Jeromy Brown DO, FACP Address [address], [place] [id number] Care Team Providers Care Economic Analyst Name Role Phone Jeromy Brown Primary Care Provider [phone] ALLERGIES No Known Allergies REASON FOR VISIT [...] Location Date Provider Diagnosis Jeromy Brown DO, [facility] [address], [place] [id number] 01/17/2024 Jeromy Brown Encounter for genera l [...] General Examination GENERAL APPEARANCE: in no ac elim ira distress, well developed, well nourished HEAD: normocephalic, [...]
--- OUTSIDE RECORDS SUMMARY | 2024-08-03 12:29 | XMS_ITS ---
Author Organization Jeromy Brown DO, FACP Address [address], [place] [id number] Care Team Providers Care Senior Fund Accountant Name Role Phone Jeromy Brown Primary Care [...] Provider Diagnosis Jeromy Brown DO, FACP [address], [place] [id number] 07/19/2023 Jeromy Brown Hypercholesterolemia E78.00 ; Elevated [...]
--- OUTSIDE RECORDS SUMMARY | 2024-08-03 12:29 | XMS_ITS ---
Author Organization Jeromy Brown DO, FACP Address [address], [place] [id number] Care Team Providers Care Financial Investment Manager Name Role Phone Jeromy Brown Primary Care Provider [phone] REASON FOR VISIT 6 month f/u Encounters Encounter Location Date Provider Diagnosis Jeromy Brown DO, FACP [address] [place] [phone] 07/17/2024 Jeromy Brown PLAN OF TREATMENT No Information
== END 2024-08-03 12:10 | disposition home or self-care (01) ==
PROVIDERS: PCP Internal Medicine; Visit Provider Urology
DX: R97.20 Elevated prostate specific antigen [PSA] (principal); N40.1 Benign prostatic hyperplasia with lower urinary tract symptoms; N13.8 Other obstructive and reflux uropathy
CPT/HCPCS: 99213

== ENCOUNTER 2025-01-07 10:34 | Outpatient (AMB) | payer BC, SELFPAY ==
[2025-01-07 10:49] VITALS: BP 120/80; PULSE 57; BMI 32.9
--- NOTE | 2025-01-07 10:49 | MHC.OFFVIS ---
Vital Signs 01/07/25 10:49 Height 5 ft 11 in Weight 235 lb 14.314 oz BMI 32.9 BP 120/80 Blood Pressure Location Lt brachial Position Sitting Pulse 57 Intake Visit Reasons: 1 yr f/up Intake Note: 1 year follow-up with ekg feeling good Re Dye Hand Required: No Allergies No Known Allergies Allergy (Verified 08/03/24 11:27) Medication List - Last Reconciled 01/07/25 by Nam Mullins MD acetylcarnitine HCl 250 mg PO DAILY alpha lipoic acid 300 mg PO DAILY ascorbic acid (vitamin C) 1,000 mg PO atorvastatin 20 mg PO DAILY cetirizine (Zyrtec) 10 mg PO DAILY PRN cholecalciferol (vitamin D3) 50 mcg PO DAILY chromium picolinate 400 mcg PO DAILY coenzyme Q10 (Co Q-10) 300 mg PO DAILY finasteride 5 mg PO .3 days a week garlic 500 mg PO DAILY lutein-zeaxanthin 25-5 mg 1 cap PO DAILY magnesium 250 mg PO DAILY multivitamin 1 tab PO DAILY omega-3 fatty acids-fish oil 360-1,200 mg (Fish Oil) 2 caps PO DAILY phytosterol-pantethine 300-100 mg (CholestOff Complete) (2) 450-75 MG TABLETS orally; turmeric root extract 500 mg PO DAILY HPI Comments Details: 69-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 He has family history of coronary artery disease and brother and father both had coronary disease and CABG in their 40s. He has been doing well. Physically active and exercises 3 times a week with a personal fitness trainer. No chest pain or shortness of breath. Last LDL level is 81, triglycerides 66 and HDL 45. Doing well as before and physically active. 01/06/23: He is here for follow-up. He is taking atorvastatin 20 mg daily. Last LDL cholesterol was 75 on 01/03/2023. HDL 44, total cholesterol 130, triglycerides 56. TSH 3.56. He continues to be active and has no exertional symptoms. No chest discomfort shortness of breath. Taking medications regularly without any issues. 01/04/2024: Here for yearly visit. Doing well. Exercising as before and has no exertional symptoms. He recently traveled and his diet changed their and he has noticed lower extremity edema. No congestive heart failure symptoms. He is saying that overnight the edema improves but as the day progresses there is lower extremity edema involving the ankles. 01/07/25: He is here for follow-up. He continues to exercise with a personal fitness trainer and play squash 3 times a week without any exertional symptoms. Just like before during summertime he has worsening lower extremity edema. This is related to his activity and diet with potentially more salt. No chest discomfort shortness of breath no symptoms/signs of heart failure otherwise. [facility] Medical History Obesity (BMI 30-39.9) Sebaceous cyst Plantar fasciitis Thyroid nodule Hyperlipidemia Surgical History History of colonoscopy (~05/2022) S/P LASIK surgery of both eyes H/O partial thyroidectomy History of hernia surgery Family History Father CAD (coronary artery disease) Brother CAD (coronary artery disease) Paternal Grandfather Prostate cancer Mother CAD (coronary artery disease) Social History Alcohol intake: current Alcohol intake frequency: holidays/special occasions only Alcohol type: wine Patient Tobacco Use Status: Never used Tobacco Review of Systems Const Denies chills, Denies fatigue, Denies fever(s), Denies frequent falls, Denies weakness, Denies weight gain and Denies weight loss ENT Denies dizziness Card Denies chest pain, Denies leg edema, Denies lightheadedness, Denies palpitations, Denies dyspnea, Denies dyspnea on exertion, Denies orthopnea and Denies other (loss of consciousness) Resp Denies cough, Denies dyspnea and Denies dyspnea on exertion GI Denies hematochezia and Denies change in stool character Musc Denies abnormal gait, Denies muscle weakness, Denies numbness, Denies radiating pain into limb and Denies tingling Neuro Denies abnormal gait, Denies dizziness, Denies frequent falls, Denies numbness, Denies tingling and Denies weakness Endo Denies fatigue and Denies palpitations Physical Exam Vital Signs: Last Vital Signs Pulse 57 01/07/25 10:49 BP 120/80 01/07/25 10:49 BMI result Body Mass Index 32.9 GENERAL APPEARANCE: in no acute distress, pleasant. NECK: no carotid bruit, no jugular venous distention. SKIN: no suspicious lesions, warm and dry. HEART: no murmurs, regular rate and rhythm. LUNGS: clear to auscultation bilaterally. ABDOMEN: soft, nontender. EXTREMITIES: 1-2+ edema at ankles. PERIPHERAL PULSES: equal. NEUROLOGIC: No gross deficits, AAO X 3 Office Procedures EKG Details: Sinus bradycardia 57 /mi, normal ECG, QTc 412msec. [id number], Complete Assessment & Plan Assessment & Plan (1) Hyperlipidemia: Code(s): E78.5 - Hyperlipidemia, unspecified Category: Medical Plan 69-year-old gentleman here for follow-up. He has background history of hyperlipidemia and family history of coronary artery disease. His last LDL cholesterol was 78. He is taking atorvastatin 20 mg daily. We discussed about coronary calcium scoring to see if he has any coronary calcium which could guide us to be more aggressive with cholesterol management and drive the cholesterol down to 55. He will think about that. He has been clinically stable and does not need any stress testing. He has lower extremity edema which is worse during summertime. I do not think this is heart failure symptoms but I have advised him to do an echocardiogram to get some more information. Follow up with us in 1 year. Thank you for allowing me to participate in the care of your patient. Please feel free to contact me if you have any questions. Orders: Orders CA echo transthoracic complete Today Nam Mullins MD M25.471 - Effusion, right ankle, M25.472 - Effusion, left ankle Medications: Changed From finasteride 5 mg PO DAILY 90 days 90 tabs 1RF N40.1 - Benign prostatic hyperplasia with lower urinary tract symptoms, R33.9 - Retention of urine, unspecified, R39.12 - Poor urinary stream To finasteride 5 mg PO .3 days a week N40.1 - Benign prostatic hyperplasia with lower urinary tract symptoms, R33.9 - Retention of urine, unspecified, R39.12 - Poor urinary stream Eamon Romero MD Coding Level of Care Code Est Pt Level 4 (18294) Diagnoses Hyperlipidemia E78.5 CPT Codes EKG - CPT: 21041-[id number], Complete ([id number])
== END 2025-01-07 11:22 | disposition home or self-care (01) ==
LOC: HO.HCS 10:35
PROVIDERS: PCP Internal Medicine; Visit Provider Internal Medicine Cardiovascular Disease
DX: E78.5 Hyperlipidemia, unspecified (principal)
CPT/HCPCS: 93010; 99214

== ENCOUNTER → 2025-01-07 10:34 | Outpatient (BNVA) | payer BC, SELFPAY | PROVIDERS: PCP Internal Medicine; Visit Provider Internal Medicine Cardiovascular Disease | DX: E78.5 Hyperlipidemia, unspecified (principal) | CPT/HCPCS: 93005 ==

== ENCOUNTER 2025-01-21 09:01 | Outpatient (REF) | payer MEDICARE, SELFPAY ==
--- OUTSIDE RECORDS SUMMARY | 2025-01-21 09:26 | XMS_ITS ---
Author Name [facility] Organization Unknown Care Team Organization Name Specialty Phone Email Start Date End [facility]
[2025-01-21 11:15] LABS: PSA,Total (Free>4and<10) 6.58 ng/mL (0.00-4.00)
[2025-01-23 11:54] LABS: Free Prostate Spec Ag 1.2 ng/mL; Percent Free Prostate Spec Ag 23 % (calc) (>25)
== END 2025-01-21 09:02 | disposition home or self-care (01) ==
LOC: HO.HMGCLDS 09:01
PROVIDERS: PCP Internal Medicine; Visit Provider Urology
DX: R97.20 Elevated prostate specific antigen [PSA] (principal); Z12.5 Encounter for screening for malignant neoplasm of prostate
CPT/HCPCS: 36415; 84153; 84154

== ENCOUNTER 2025-01-29 10:29 | Outpatient (AMB) | payer MEDICARE, SELFPAY ==
[2025-01-29 10:31] VITALS: BP 140/98; PULSE 59; RESP 20; TEMP 36.2; O2SAT 97; BMI 32.7
--- NOTE | 2025-01-29 10:31 | MHC.PC.OV ---
Vital Signs 01/29/25 10:31 01/29/25 13:36 Height 5 ft 11 in Weight 234 lb 2 oz BMI 32.7 BP 140/98 H 131/75 Blood Pressure Location Lt brachial Rt brachial Position Sitting Sitting Respiration 20 Pulse 59 Pulse Source Pulse Oximeter Temp 97.2 F Temp Source Temporal Artery Scan Pulse Oximetry (%) 97 Oxygen Delivery Method Room Air Intake Visit Reasons: physical Nursing Aide Required: No Accompanied by: Self / Same As Patient Allergies No Known Allergies Allergy (Verified 01/29/25 13:36) Medication List - Last Reconciled 01/29/25 by Clementina Collins PA-C acetylcarnitine HCl 250 mg PO DAILY alpha lipoic acid 300 mg PO DAILY ascorbic acid (vitamin C) 1,000 mg PO atorvastatin 20 mg PO DAILY cetirizine (Zyrtec) 10 mg PO DAILY PRN cholecalciferol (vitamin D3) 50 mcg PO DAILY chromium picolinate 400 mcg PO DAILY coenzyme Q10 (Co Q-10) 300 mg PO DAILY finasteride 5 mg PO .3 days a week garlic 500 mg PO DAILY lutein-zeaxanthin 25-5 mg 1 cap PO DAILY magnesium 250 mg PO DAILY multivitamin 1 tab PO DAILY omega-3 fatty acids-fish oil 360-1,200 mg (Fish Oil) 2 caps PO DAILY phytosterol-pantethine 300-100 mg (CholestOff Complete) (2) 450-75 MG TABLETS orally; turmeric root extract 500 mg PO DAILY Tobacco use date assessed: 01/29/25 Fall risk assessment: No Falls in past year Last assessed Fall Risk: 01/29/25 Dental Screening Dental Screen Date: 01/29/25 Did you have a dental visit in the last 12 months?: Yes Did you have a dental problem in the last 6 months where you did not have access to dental care?: No Was dental information given to patient?: Patient has dentist HPI physical HPI Details The patient is a 69-year-old male presenting for an annual physical examination. The patient has a history of prediabetes, with a fasting glucose level of 100 mg/dL and an A1c of 5.7%, indicating a prediabetic state. He reports trying to avoid high sugar and carbohydrate intake, although he acknowledges occasional consumption of bread. The patient has benign thyroid nodules, which have been monitored and deemed non-cancerous. He reports no current follow-up for these nodules as they are considered benign. The patient has a history of hypertension, with recent blood pressure readings showing variability. A recent measurement was 140/98 mmHg, although a previous reading was 120/80 mmHg. The patient experiences peripheral edema, particularly in the left ankle, which worsens throughout the day. He denies any associated pain or shortness of breath. The patient has a consistently low heart rate, typically in the 50s, which is normal for him. He denies any symptoms of dizziness or lightheadedness associated with this finding. Preventative care measures discussed include the need for a Tdap vaccination, as the patient has not received one since 2008. Social History - Family status: No children, son of a spouse has moved back to the area - Exercise: Engages in daily activities, contributing to peripheral edema - Nutrition: Attempts to avoid high sugar and carbohydrate intake, occasional bread consumption [facility] Medical History (Updated 01/29/25 @ 13:41 by Clementina Collins PA-C) Preventative health care Bradycardia, sinus Peripheral edema Hypertension Prediabetes Obesity (BMI 30-39.9) Sebaceous cyst Plantar fasciitis Thyroid nodule Hyperlipidemia Surgical History History of colonoscopy (~05/2022) S/P LASIK surgery of both eyes H/O partial thyroidectomy History of hernia surgery Family History Father CAD (coronary artery disease) Brother CAD (coronary artery disease) Paternal Grandfather Prostate cancer Mother CAD (coronary artery disease) Social History Housing: House Alcohol intake: current Alcohol intake frequency: holidays/special occasions only Alcohol type: wine Patient Tobacco Use Status: Never used Tobacco service: No Current occupational status: retired Cognitive needs: No Hearing needs: No Vision needs: Yes (reading glasses) Questionnaire PHQ-9 Over the last 2 weeks, how often have you been bothered by any of the following problems? 1. Little interest or pleasure in doing things: not at all 2. Feeling down, depressed, or hopeless: not at all 3. Trouble falling or staying asleep, or sleeping too much: not at all 4. Feeling tired or having little energy: not at all 5. Poor appetite or overeating: not at all 6. Feeling bad about yourself - or that you are a failure or have let yourself or your family down: not at all 7. Trouble concentrating on things, such as reading the newspaper or watching television: not at all 8. Moving or speaking so slowly that other people could have noticed. Or the opposite - being so fidgety or restless that you have been moving around a lot more than usual: not at all 9. Thoughts that you would be better off or of hurting yourself in some way: not at all Total score: 0 Depression Screening Interpretation: Negative Depression Screening Done: Yes 86559 - PHQ-9 Billing: Yes Source: Developed by Drs. Jeromy Dang, Radha Padron, Nathanael Timmons and colleagues, with an educational kyaw from [employer]. Thrive Questionnaire Date Thrive assessed: 01/29/25 I am a: Patient What is your living situation today?: I have a steady place to live Within the past 12 months, did the food you bought not last and you didn't have the money to get more?: Never true Within the past 12 months, did you worry whether your food would run out before you got money to buy more?: Never true Do you have trouble paying for medicines?: No Do you have trouble getting transportation to medical appointments?: No Do you have trouble paying your heating and electricity bill?: No Do you have trouble taking care of your child, family member or friend?: No Do you have trouble with day-to-day activities such as bathing, preparing meals, shopping, managing finances, etc.?: No Are you currently unemployed and looking for a job?: No Are you interested in more education?: No Please select the resources that you would like help with: None Currently or been in a relationship where the following occur: No concerns reported THRIVE Score: 0 AUDIT C Alcohol Use Questionnaire (AUDIT-C) 1. How often do you have a drink containing alcohol?: Monthly or less 2. How many drinks containing alcohol do you have on a typical day when you are drinking?: 1 or 2 3. How often do you have six or more drinks on one occasion?: Never Total Score: 1 Score Reviewed/Action Taken: No JEFFERSON-7 AMB Questionnaire JEFFERSON-7 Date JEFFERSON - 7 assessed: 01/29/25 Feeling nervous, anxious, or on edge: 0 = Not at all Not being able to stop or control worryin = Not at all Worrying too much about different things: 0 = Not at all Trouble relaxin = Not at all Being so restless that it is hard to sit still: 0 = Not at all Becoming easily annoyed or irritable: 0 = Not at all Feeling afraid as if something awful might happen: 0 = Not at all Total JEFFERSON-7 score (0-4 normal; 5-9 mild; 10-14 moderate; 15-21 severe): 0 Source: Developed by Drs. Jeromy Dang, Radha Padron, Nathanael Timmons and colleagues, with an educational kyaw from [employer]. JEFFERSON-7 Assessment Billing JEFFERSON-7 Assessment Tool: JEFFERSON-7 Assessment 41439 Review of Systems Const Details: - Cardiovascular: Denies chest pain, orthopnea, or syncope - Respiratory: Denies dyspnea - Gastrointestinal: Denies black or bloody stools - Neurological: Denies dizziness or lightheadedness - General: Denies unintentional weight loss, reports stable weight All systems reviewed & are unremarkable except as noted in HPI and below Physical exam (Primary Care) Vital Signs: Last Vital Signs Temp 97.2 F 01/29/25 10:31 Pulse 59 01/29/25 10:31 Resp 20 01/29/25 10:31 BP 140/98 H 01/29/25 10:31 Pulse Ox 97 01/29/25 10:31 Oxygen Delivery Method Room Air 01/29/25 10:31 Care Plan Goal for BP management: <140/90 at Goal BMI result Body Mass Index 32.7 BMI Assessment/Plan discussion: High BMI High, discussed plan: lifestyle, weight reduction, dietary, physical activity and alcohol moderation Tobacco/Smoking Status: Tobacco use Status Tobacco use date assessed 01/29/25 01/29/25 10:36 Patient Tobacco Use Status Never used Tobacco 01/29/25 10:41 PHQ-9: PHQ-9 Score PHQ-9: Total score 0 01/29/25 10:36 Depression Screening Interpretation: Negative Thrive Assessment: Date of Thrive Assessment Date Thrive assessed 01/29/25 01/29/25 10:36 Currently or been in a relationship where the following occur: No concerns reported Const Other: Appearance: Alert. Oriented X3. No acute distress. Head: Normal external exam. Normocephalic. Atraumatic. Eyes: Pupils are equal, round, and reactive to light. Extraocular movements intact. Conjunctiva and sclera normal. Eyelids normal. Ears: External auditory canal normal. Tympanic membranes normal. Throat: Pharynx normal. Uvula midline. Moist mucous membranes. Neck: Normal inspection. Neck supple. Full range of motion. No adenopathy. Thyroid Normal. No meningeal signs. No neck mass noted. Cardiovascular: Heart rate is 59, indicating a relaxed state. Normal heart rate and rhythm. Heart sound normal. No murmurs noted. Pulses normal throughout. Respiratory: No respiratory distress. Painless inspiration. Breath sounds normal. No wheezes/rales/rhonchi noted. Chest nontender. No accessory muscle usage noted or decreased air movement noted. Abdomen: Soft and nontender. No distention noted. No organomegaly noted. Back: No costovertebral angle tenderness. Full range of motion noted. Skin: Skin warm and dry. Normal skin color. Normal skin turgor. No rashes/lesions/lacerations noted. Extremities: Extremities exhibit normal range of motion. Extremities nontender. Plus one or plus two pitting edema noted in the ankles, especially the left one. Neuro: Oriented X 3. No motor deficit. No sensory deficit. Reflexes normal. Results Reviewed Results Reviewed: - Labs: Fasting glucose 100 mg/dL, A1c 5.7%, indicating prediabetes - Labs: CBC normal, no anemia, normal platelet count - Labs: Kidney function normal - Labs: PSA stable, monitored by urologist Coding Level of Care Code Est Pt Level 4 (53731) Est Pt Prev Care >65y(08847) Diagnoses Prediabetes R73.03 Thyroid nodule E04.1 Hypertension I10 Peripheral edema R60.0 Bradycardia, sinus R00.1 Preventative health care Z00.00 Additional Codes PHQ-9 - 60223 - PHQ-9 Billing: Yes ([id number]) JEFFERSON-7 Assessment Billing - JEFFERSON-7 Assessment Tool: JEFFERSON-7 Assessment 30296 ([id number]) Assessment & Plan Assessment & Plan (1) Prediabetes: Code(s): R73.03 - Prediabetes Category: Medical Plan: The patient is advised to continue monitoring dietary intake, focusing on reducing sugar and carbohydrate consumption to manage prediabetes. A follow-up with blood work is planned to reassess glucose levels and A1c in six months. (2) Thyroid nodule: Code(s): E04.1 - Nontoxic single thyroid nodule Category: Medical Plan: The patient has benign thyroid nodules that do not require further intervention at this time. (3) Hypertension: Code(s): I10 - Essential (primary) hypertension Category: Medical Plan: The patient is advised to monitor blood pressure regularly and report any significant changes. (4) Peripheral edema: Code(s): R60.0 - Localized edema Category: Medical Plan: The patient is advised to monitor for any changes in edema and report if symptoms worsen or if new symptoms such as dyspnea develop. (5) Bradycardia, sinus: Code(s): R00.1 - Bradycardia, unspecified Category: Medical Plan: The patient is advised to monitor for symptoms such as dizziness or syncope and report if they occur. (6) Preventative health care: Code(s): Z00.00 - Encounter for general adult medical examination without abnormal findings Category: Medical Plan: The patient is advised to receive a Tdap vaccination, which can be administered at a local pharmacy or during a nurse visit. Plan Plan Patient was informed and verbally consented to the use of an ambient scribe for clinic note documentation during this visit. 1. Prediabetes The patient is advised to continue monitoring dietary intake, focusing on reducing sugar and carbohydrate consumption to manage prediabetes. A follow-up with blood work is planned to reassess glucose levels and A1c in six months. 2. Benign Thyroid Nodules The patient has benign thyroid nodules that do not require further intervention at this time. 3. Hypertension The patient is advised to monitor blood pressure regularly and report any significant changes. 4. Peripheral Edema The patient is advised to monitor for any changes in edema and report if symptoms worsen or if new symptoms such as dyspnea develop. 5. Low Heart Rate The patient is advised to monitor for symptoms such as dizziness or syncope and report if they occur. 6. Preventative Care: Tdap Vaccination The patient is advised to receive a Tdap vaccination, which can be administered at a local pharmacy or during a nurse visit. During the visit, I discussed with the patient the importance of managing prediabetes through dietary modifications, emphasizing the reduction of sugar and carbohydrate intake. We also reviewed the need for regular blood pressure monitoring due to hypertension and the potential benefits of receiving a Tdap vaccination. I advised the patient to monitor for any changes in peripheral edema and to report any new symptoms such as dyspnea. Orders: Orders Magnesium Today Z00.00 - Encounter for general adult medical examination without abnormal findings Vitamin B12 and Folate Today Z00.00 - Encounter for general adult medical examination without abnormal findings Vitamin D 25-OH Total Today Z00.00 - Encounter for general adult medical examination without abnormal findings C Reactive Protein Today Z00.00 - Encounter for general adult medical examination without abnormal findings Complete Blood Count Auto Diff Today Z00.00 - Encounter for general adult medical examination without abnormal findings Comprehensive Cruger. Panel Fast Today Z00.00 - Encounter for general adult medical examination without abnormal findings Hemoglobin A1c Today Z00.00 - Encounter for general adult medical examination without abnormal findings Lipid Panel Today Z00.00 - Encounter for general adult medical examination without abnormal findings TSH reflex Free T4 Today Z00.00 - Encounter for general adult medical examination without abnormal findings Liver Panel Today Z00.00 - Encounter for general adult medical examination without abnormal findings Patient Instructions: - Monitor dietary intake, focusing on reducing sugar and carbohydrates. - Regularly check blood pressure and report significant changes. - Monitor for changes in edema and report if symptoms worsen or new symptoms develop. - Receive a Tdap vaccination at a local pharmacy or during a nurse visit.
--- OUTSIDE RECORDS SUMMARY | 2025-01-29 11:52 | XMS_ITS | Clinical Summary ---
Author Organization [facility] Address [address] [place] [address] Care Team Providers Care Visual Specialist Name Role Phone Unavailable Primary Care Provider Unavailabl e Social History Tobacco Use Types Packs/Day Years Used Date Smoking Tobacco: Never Assessed Sex and Gender Information Value Date Recorded Sex Assigned at Not on file Legal Sex Male 6:26 PM EST Gender Identity Not on file Sexual Orientation Not on file Plan of Treatment Health Maintenance Due Date Last Done Comments Hepatitis C Virus Screening 1955 DTaP/Tdap/Td Vaccines (1 - Tdap) 08/29/1975 Pneumococcal Vaccines 50+ (1 of 1 - PCV) 2006 Zoster (Shingles) Vaccine (1 of 2) 2006 COVID-19 Vaccine ( - 2023-2 5 season) 2024 RSV Vaccine 60 years and old er and Patients (1 - 1-dose 75+ series) 08/29/2031 Hepatitis B Vaccines Aged Out No long er eligible based on patient's age to complete this topic
[2025-01-29 13:36] VITALS: BP 131/75
== END 2025-01-29 13:15 | disposition home or self-care (01) ==
LOC: HO.HMCSH 10:29
PROVIDERS: PCP Internal Medicine; Visit Provider Physician Assistant Medical
DX: Z00.00 Encounter for general adult medical examination without abnormal findings (principal); R73.03 Prediabetes; E04.1 Nontoxic single thyroid nodule; I10 Essential (primary) hypertension; R60.0 Localized edema; R00.1 Bradycardia, unspecified

== ENCOUNTER → 2025-01-29 10:29 | Outpatient (BNVA) | payer MEDICARE, SELFPAY | PROVIDERS: PCP Internal Medicine; Visit Provider Physician Assistant Medical | DX: Z00.00 Encounter for general adult medical examination without abnormal findings (principal); I10 Essential (primary) hypertension; R60.0 Localized edema; R73.03 Prediabetes; E04.1 Nontoxic single thyroid nodule; R00.1 Bradycardia, unspecified | CPT/HCPCS: 96127; 99212; 99397 ==

== ENCOUNTER 2025-01-31 10:13 | Outpatient (AMB) | payer MEDICARE, SELFPAY ==
--- NOTE | 2025-01-31 10:09 | MHC.OFFVIS ---
Intake Visit Reasons: 6m/PSA Intake Note: Pt presents to office today for 6 month follow up Urology meds VIT-C ,Finasteride Blood thinners : none Labs done 01/21/2025: Fr PSA :1.2, %Fr PSA :23, Total PSA 5.3 Zinc Plate Cutter Required: No Accompanied by: Self / Same As Patient Allergies No Known Allergies Allergy (Verified 01/31/25 10:12) HPI Comments Details: Morgan is a pleasant male. He is a patient of Dr. Brown. 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 [employer] May benefit from prostate MRI at some point Six-month follow-up PSA office Lower urinary tract symptoms and elevated PSA Significant drop in PSA on finasteride Decrease in nocturia to 1 times Current therapy finasteride Family history of BPH PSA since June 2019 has been variable between 4 and 8 - 07/03 8.1 22%, 12/01 2.9, 07/04 4.4 21%, 12/02 3.8, 06/03 4.7, 10/03 4.4 18%, 04/04 4.7 17%, 10/04 3.9, 04/05 5.4 F 20%, 08/07 5.3 18%, 02/04 5.3 23% PFSH Medical History (Updated 01/29/25 @ 13:41 by Clementina Collins PA-C) Preventative health care Bradycardia, sinus Peripheral edema Hypertension Prediabetes Obesity (BMI 30-39.9) Sebaceous cyst Plantar fasciitis Thyroid nodule Hyperlipidemia Surgical History History of colonoscopy (~05/2022) S/P LASIK surgery of both eyes H/O partial thyroidectomy History of hernia surgery Family History Father CAD (coronary artery disease) Brother CAD (coronary artery disease) Paternal Grandfather Prostate cancer Mother CAD (coronary artery disease) Social History Housing: House Alcohol intake: current Alcohol intake frequency: holidays/special occasions only Alcohol type: wine Patient Tobacco Use Status: Never used Tobacco service: No Current occupational status: retired Cognitive needs: No Hearing needs: No Vision needs: Yes (reading glasses) Review of Systems Const All systems reviewed & are unremarkable except as noted in HPI and below Reports no additional complaints Resp Reports no additional complaints GI Reports no additional complaints Reports as per HPI Musc Reports no additional complaints Physical Exam Telemedicine evaluation Appropriate responses Regular breathing rate and rhythm HEENT Head: Yes normal to inspection Ears: hearing grossly normal bilaterally Eyes General: appearance normal, both eyes and all related structures Neck Neck: Yes normal visual inspection Chest Chest palpation & inspection: normal inspection of the chest Resp Effort & Inspection: normal respiratory effort and able to speak in complete sentences Telehealth Telehealth Telehealth Platform: Captimo Location of provider rendering services: practice address Location of patient: address on file Patient Identification confirmed using: Name, : Yes Telehealth method: video Patient verbally consented to treatment: Yes Patient verbally consented to billing insurance company: Yes Patient informed of any privacy concerns related to visit: Yes Assessment & Plan Assessment & Plan (1) Elevated PSA: Code(s): R97.20 - Elevated prostate specific antigen [PSA] Category: Medical (2) BPH w urinary obs/LUTS: Code(s): N40.1 - Benign prostatic hyperplasia with lower urinary tract symptoms; N13.8 - Other obstructive and reflux uropathy Category: Medical Plan Six-month follow-up check PSA Orders: Orders PSA,Total (Free>4and<10) 6 Months R97.20 - Elevated prostate specific antigen [PSA] Patient Instructions: This note is constructed using voice recognition software. While every effort has been made to ensure accuracy systems development consultant errors may have been included. Imaging studies, laboratory and physical exam results were discussed and reviewed in detail. No major barriers to patient understanding were identified. An opportunity to ask questions regarding the treatment plan was provided. All questions were answered. The patient expressed understanding and agreement with the above treatment plan. The patient is aware they should contact our office by phone for worsening of their current condition or the appearance of new urologic symptoms. Compliance is encouraged with any medications and followup testing that is ordered. It is a privilege to participate in the urologic care of your patient. If you have any questions or concerns regarding treatment for the above conditions, or other urologic issues, please do not hesitate to contact me. The office telephone contact is [phone]. Sincerely, Dr Eamon Romero MD, [facility] - Urology Compassionate Specialist Care for the Genitourinary System Coding Level of Care Code Tele Est Pt Level 3 (01726) Complex EM visit Add On G2211 Diagnoses Elevated PSA R97.20 BPH w urinary obs/LUTS N40.1; N13.8
--- OUTSIDE RECORDS SUMMARY | 2025-01-31 11:42 | XMS_ITS | Clinical Summary ---
Author Organization [facility] Address [address] [place] [address] Care Team Providers Care Barge Master Name Role Phone Unavailable Primary Care Provider [...]
== END 2025-01-31 10:36 | disposition home or self-care (01) ==
LOC: HO.HUSH 10:13
PROVIDERS: PCP Internal Medicine; Visit Provider Urology
DX: R97.20 Elevated prostate specific antigen [PSA] (principal); N40.1 Benign prostatic hyperplasia with lower urinary tract symptoms; N13.8 Other obstructive and reflux uropathy
CPT/HCPCS: 99213; G2211

== ENCOUNTER → 2025-03-11 13:36 | Outpatient (REF) | payer MEDICARE, SELFPAY ==
--- NOTE | 2025-03-11 13:38 | CA_ITS ---
Transthoracic Echocardiogram Patient (Last, First, Middle): Morgan Kern D Gender: M Date of : 1955 Age: 69 Procedure Date: 03/11/2025 Procedure Type: Transthoracic Echocardiogram Location: OP Height: 180.34 cm Weight: 104.33 kg BSA: 2.24 m2 Heart Rate: bpm BP: 135 / 70 mmHg Stock Order Lister: Referring MD: Nam Mullins MD Quahogger: Nam Mullins MD Symptoms: M25.471/M25.472 - Effusion, right and left ankle, Bilateral ankle edema Study Quality: Fair ECG Rhythm: Sinus Conclusions: - The left ventricular systolic function is normal. The calculated ejection fraction is 63% by biplane method. - No obvious valvular pathology seen on this study. Findings Left Ventricle Normal left ventricular cavity size. The left ventricular systolic function is normal. The calculated ejection fraction is 63% by biplane method. There is no evidence of regional wall motion abnormalities. Diastolic function is normal for age. There is mild septal asymmetric hypertrophy. Right Ventricle Mildly increased right ventricular cavity size. There is normal right ventricular systolic function. Atria Both atria are normal in size. Aortic Valve There is a normal trileaflet aortic valve. There is no aortic valve stenosis. There is trace (trivial) aortic valve regurgitation. Mitral Valve The mitral valve appears normal. There is no mitral valve regurgitation. There is no mitral valve stenosis. Pulmonic Valve The pulmonic valve is likely normal. Tricuspid Valve There is trace tricuspid valve regurgitation. There is no evidence of pulmonary hypertension. Great Vessels The asc aorta is normal in size. Venous The inferior vena cava is normal in size and collapses greater than 50% with inspiration. Pericardium/Pleural There is no evidence of pericardial effusion. Prior Study Comparison No prior study available for comparison. Recommendations, Care & Conclusions No obvious valvular pathology seen on this study. Measurements 2D Linear Measurements IVSd: 1.05 0.6-0.9/0.6-1.0 cm LVIDd: 5.52 3.9-5.3/4.2-5.9 cm LVIDd Index: 2.46 2.4-3.2/2.2-3.1 cm/m2 LVIDs: 3.39 2.0-3.6 cm LVPWd: 1.02 0.7-1.1 cm Ao Root: 3.90 2.1-3.5 cm LA Diam: 3.30 2.7-3.8/3.0-4.0 cm LAIDs Index: 1.47 1.5-2.3 cm/m2 LV Mass: 279.81 67-162/88-224 g LV Mass Index: 124.92 43-95/49-115 g/m2 LVOT Diam: 2.50 3.0+(-)1.3 cm 2D Systolic Function EF 4C: 62.80 >55% EF 2C: 67.70 >55% EF BiP: 63.10 >55% Mitral Valve MV Pk E: 0.38 MV PK A: 0.59 MV Decel Time: 222.00 E/A: 0.60 E'Lateral: 5.44 E'Medial: 5.55 E/E' Med: 6.80 E/E' Lat: 6.90 PHT: 65.00 MVA PHT: 3.38 Decel Boundary: 1.70 Aortic Valve AoV Pk Barry: 1.15 AoV Mn Barry: 0.76 AoV VTI: 0.22 AoV Pk Grad: 5.00 Aov Mn Grad: 3.00 LASHAY Cont.VTI: 4.25 LVOT LVOT Pk Barry: 0.81 LVOT Mn Barry: 0.52 LVOT VTI: 0.19 LVOT Pk Grad: 3.00 LVOT Mn Grad: 2.00 LVOT Diam: 2.50 LVOT Area: 4.91 Diastolic Function MV Pk E: 0.38 MV Pk A: 0.59 E/A: 0.60 E'Medial: 5.55 E/E' Med: 6.80 E' Laterial: 5.44 E/E' Lat: 6.90 Right Ventricle TAPSE (mm): 23.00 TVS' Barry: 12.00 Tricuspid Valve TR Pk Barry: 1.60 TR Pk Grad: 10.00 RA Press: 3.00 RVSP: 13.00 Great Vessels Aorta Ao Root-2D: 3.90 2.0-3.7 cm Ao Asc: 3.40 2.1-3.4 cm Pulmonary Valve PV Pk Barry: 1.41 Peak PV Grad: 8.00 Updated in Other Vendor System with Status of Final Cornelius Zambrano MD electronically signed on 03/12/2025 11:01:59 AM with status of Final
--- OUTSIDE RECORDS SUMMARY | 2025-03-11 15:11 | XMS_ITS | Clinical Summary ---
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 Name Role Phone Unavailable Primary Care Provider Unavailabl e Social History Tobacco Use Types Packs/Day Years Used Date Smoking Tobacco: Never Assessed Sex and Gender Information Value Date Recorded Sex Assigned at Not on file Legal Sex Male 6:26 PM EST Gender Identity Not on file Sexual Orientation Not on file Plan of Treatment Health Maintenance Due Date Last Done Comments Advance Care Planning 1955 Hepatitis C Virus Screening 1955 DTaP/Tdap/Td Vaccines (1 - Tdap) 08/29/1975 Pneumococcal Vaccines 50+ (1 of 1 - PCV) 2006 Zoster (Shingles) Vaccine (1 of 2) 2006 COVID-19 Vaccine (1 - 2023-2 5 season) 2025 RSV Vaccine 60 years and old er and Patients (1 - 1-dose 75+ series) 08/29/2031 Hepatitis B Vaccines Aged Out No long er eligible based on patient's age to complete this topic
== END ==
LOC: HO.CARD 13:36
PROVIDERS: PCP Internal Medicine; Visit Provider Internal Medicine Cardiovascular Disease
DX: R60.0 Localized edema (principal); M25.471 Effusion, right ankle; M25.472 Effusion, left ankle
CPT/HCPCS: 93306

== ENCOUNTER → 2025-03-11 13:38 | Outpatient (BNV) | payer MEDICARE, SELFPAY | PROVIDERS: PCP Internal Medicine; Visit Provider Internal Medicine | DX: I42.2 Other hypertrophic cardiomyopathy (principal) | CPT/HCPCS: 93306 ==